=== PATIENT | female | born 1955 | race Caucasian/White ===

== ENCOUNTER → 2018-07-17 | Outpatient (CLI) | payer MEDICAID ==
--- NOTE | 2018-07-17 13:15 | WOMENS IMAGING REPORT ---
EXAM DESCRIPTION: BILAT SCREENING MAMMO W/CAD COMPLETED DATE/TIME: 07/17/2018 12:30 pm REASON FOR STUDY: Z12.31 ROUTINE BILATRAL SCREENING Z12.31 ENCNTR SCREEN MAMMOGRAM FOR MALIGNANT NE OPLASM OF ERIK COMPARISON: None. TECHNIQUE: Standard craniocaudal and mediolateral oblique views of each breast recorded using Showpada l acquisition. LIMITATIONS: None. FINDINGS: No masses, calcifications or architectural distortion. No areas of suspicion. Read with the assistance of CAD. .[facility] - R2 Cenova Version 1.3 .[facility] Imaging - R2 Cenova Version 2.1 .[facility] - R2 Cenova Version 2.4 .[facility] [place] Cenova Version 2.4 .[facility] - R2 Eyelet Riveter Version 9.2 IMPRESSION: NORMAL MAMMOGRAM. BIRADS 1. BREAST DENSITY: c. The breasts are heterogeneously dense, which may obscure small masses. BIRAD: 1 NEGATIVE RECOMMENDATION: ROUTINE SCREENING COMMENT: The patient has been notified of the results by letter per SA requirements. Additional no tification policies are in place for contacting patient with suspicious or incomplete findings. Quality ID #[id number]: The [employer] recommends an annual screening mammogram for women aged 40 years or over. This facility utilizes a reminder system to ensure that all patients receive reminder letters, and/or direct phone calls for appointments. This includes reminders for routine scr eening mammograms, diagnostic mammograms, or other Breast Imaging Interventions when appropriate. Th is patient will be placed in the appropriate reminder system. The [employer] (ACR) has developed recommendations for screening MRI of the breast s in certain patient populations, to be used in conjunction with mammography. Breast MRI surveillanc e may be appropriate for women with more than 20% lifetime risk of developing breast cancer as deter mined by genetic testing, significant family history of the disease, or history of mantle radiation f or Hodgkins Disease. ACR Practice Guidelines 2008. TECHNICAL DOCUMENTATION: FINDING NUMBER: (1) ASSESSMENT: (1) JOB ID: [id number] [employer]- All Rights Reserved Reading location - IP/workstation name: [email or web address]
== END ==
LOC: WI 11:34
PROVIDERS: ATTEND Family Medicine
DX: Z12.31 Encounter for screening mammogram for malignant neoplasm of breast (principal)
CPT/HCPCS: 77067

== ENCOUNTER → 2018-09-19 | Outpatient (CLI) | payer MEDICAID ==
[2018-09-19 12:38] LABS: ABSOLUTE BASOPHILS # (AUTO) 0.1 10^3/uL (0.0-0.2); ABSOLUTE EOSINOPHILS # (AUTO) 0.1 10^3/uL (0.0-0.6); ABSOLUTE LYMPHOCYTES (AUTO) 1.6 10^3/uL (0.5-4.7); ABSOLUTE MONOCYTES (AUTO) 0.5 10^3/uL (0.1-1.4); ABSOLUTE NEUT (AUTO) 4.3 10^3/uL (1.7-8.2); BASOPHILS % (AUTO) 1.1 % (0-2); EOSINOPHILS % (AUTO) 1.5 % (0-6); HEMATOCRIT 42.7 % (36.0-47.0); HEMOGLOBIN 14.8 g/dL (12.0-15.5); LYMPHOCYTES % (AUTO) 24.1 % (13-45); MEAN CORPUSCULAR HEMOGLOBIN 34.6 pg (27.0-33.4); MEAN CORPUSCULAR HGB CONC 34.6 g/dL (32.0-36.0); MEAN CORPUSCULAR VOLUME 100 fl (80-97); MONOCYTES % (AUTO) 7.4 % (3-13); PLATELET COUNT 301 10^3/uL (150-450); RED BLOOD COUNT 4.28 10^6/uL (3.72-5.28); RED CELL DISTRIBUTION WIDTH 12.5 % (11.5-14.0); SEGMENTED NEUTROPHILS % (AUTO) 65.9 % (42-78); TOTAL CELLS COUNTED % (AUTO) 100 %; WHITE BLOOD COUNT 6.6 10^3/uL (4.0-10.5)
[2018-09-19 13:09] LABS: ALANINE AMINOTRANSFERASE 20 U/L (9-52); ALBUMIN 4.5 g/dL (3.5-5.0); ALKALINE PHOSPHATASE 85 U/L (38-126); ANION GAP 11 (5-19); ASPARTATE AMINO TRANSFERASE 28 U/L (14-36); BILIRUBIN,DIRECT 0.2 mg/dL (0.0-0.4); BILIRUBIN,TOTAL 0.6 mg/dL (0.2-1.3); BLOOD UREA NITROGEN 8 mg/dL (7-20); CALCIUM 10.5 mg/dL (8.4-10.2); CARBON DIOXIDE 29 mmol/L (22-30); CHLORIDE 98 mmol/L (98-107); GLUCOSE 103 mg/dL (75-110); POTASSIUM 4.1 mmol/L (3.6-5.0); SODIUM 137.9 mmol/L (137-145); TOTAL PROTEIN 7.2 g/dL (6.3-8.2)
--- NOTE | 2018-09-19 13:39 | RADIOLOGY REPORT (SQ) ---
EXAM DESCRIPTION: CHEST PA/LATERAL COMPLETED DATE/TIME: 09/19/2018 12:20 pm REASON FOR STUDY: COUGH COMPARISON: CT angio chest 10/02/2015 Two-view chest 10/02/2015 EXAM PARAMETERS: NUMBER OF VIEWS: two views TECHNIQUE: Digital Frontal and Lateral radiographic views of the chest acquired. RADIATION DOSE: NA LIMITATIONS: none FINDINGS: LUNGS AND PLEURA: No opacities, masses or pneumothorax. No pleural effusion. MEDIASTINUM AND HILAR STRUCTURES: No masses or contour abnormalities. HEART AND VASCULAR STRUCTURES: Heart normal size. No evidence for failure. BONES: No acute findings. HARDWARE: None in the chest. OTHER: No other significant finding. IMPRESSION: NO SIGNIFICANT RADIOGRAPHIC FINDING IN THE CHEST. TECHNICAL DOCUMENTATION: JOB ID: [id number] [email or web address]- All Rights Reserved Reading location - IP/workstation name: [email or web address]
== END ==
LOC: OD 11:53
PROVIDERS: ATTEND Nurse Practitioner Acute Care
DX: R42 Dizziness and giddiness (principal); R05 Cough
CPT/HCPCS: 36415; 71046; 80053; 84443; 85025

== ENCOUNTER 2018-12-16 05:54 | Emergency (ER) | payer MEDICAID ==
[2018-12-16 06:01] VITALS: BP 152/84
--- NOTE | 2018-12-16 09:27 | ER Document Report ---
ED General - General TRAVEL OUTSIDE OF THE [place] IN LAST 30 DAYS: No - General Chief Complaint: Allergic Reaction Stated Complaint: HAND PROBLEM Time Seen by Provider: 12/16/18 09:25 Primary Care Provider: MARY JANE MIX DO [ACTIVE STAFF] - [facility] ROXANNE ESPINOZA DO [Primary Care Provider] - Follow up in 1 week - [facility] Notes: 63-year-old female to the emergency department with complaints of progressively worsening rash to her forearms, fingers, right ear, legs for the past 2 months. She states that she saw her primary care this past week and he gave her permethrin cream. She states that she is used it several times but has not had relief. She states that to her left forearm the ulcerations have now started to weep and she has increasing redness and swelling to the arm. She states that these lesions hurt. She does have a history of cold sores. But she is never had any sort of herpetic lesion anywhere else on her body. She is not sexually active. She denies any new medications. [place] any dogs. She has not noticed any new bug infestations at her home. She denies any fevers, chills, chest pain, shortness of breath, nausea, vomiting, diarrhea, abdominal pain. (MILLER PARKINSON) - Related Data Allergies/Adverse Reactions: No Known Allergies Allergy (Verified 10/02/15 18:26) Past Medical History - General Information source: Patient - Social History Smoking Status: Current Every Day Smoker Chew tobacco use (# tins/day): No Frequency of alcohol use: None Drug Abuse: None Family History: Reviewed & Not Pertinent Patient has suicidal ideation: No Patient has homicidal ideation: No - Past Medical History Cardiac Medical History: Reports: Hx Hypertension Denies: Hx Heart Attack Pulmonary Medical History: Reports: Hx COPD Denies: Hx Asthma Neurological Medical History: Denies: Hx Cerebrovascular Accident, Hx Seizures Renal/ Medical History: Denies: Hx Peritoneal Dialysis GI Medical History: Denies: Hx Hepatitis, Hx Hiatal Hernia, Hx Ulcer Musculoskeletal Medical History: Psychiatric Medical History: Reports: Hx Depression Denies: Hx Schizophrenia Infectious Medical History: Denies: Hx Hepatitis Past Surgical History: Reports: Hx Tubal Ligation. Denies: Hx Mastectomy, Hx Open Heart Surgery, Hx Pacemaker - Immunizations Hx Diphtheria, Pertussis, Tetanus Vaccination: - unknown Review of Systems - Review of Systems Constitutional: denies: Chills, Fever EENT: denies: Eye pain, Eye discharge Cardiovascular: denies: Chest pain, Palpitations, Dyspnea, Syncope, Dizziness Respiratory: denies: Cough, Short of breath Gastrointestinal: denies: Abdominal pain, Diarrhea, Nausea, Vomiting Skin: See HPI, Change in color, Rash Hematologic/Lymphatic: denies: No symptoms reported Neurological/Psychological: denies: No symptoms reported -: Yes All other systems reviewed and negative Physical Exam - Vital signs Interpretation: Hypertensive - General General appearance: Appears well, Alert In distress: None - HEENT Head: Normocephalic, Atraumatic Eyes: Normal Pupils: PERRL Ears: Other - To the right ear auricle there is noted crusted ulcerations with mild surrounding erythema Tympanic membrane: Normal Sinus: Normal Nasal: Other - No blistering - Respiratory Respiratory status: No respiratory distress Chest status: Nontender Breath sounds: Normal Chest palpation: Normal - Cardiovascular Rhythm: Regular Heart sounds: Normal auscultation Murmur: No - Back Back: Normal - Neurological Neuro grossly intact: Yes Cognition: Normal Orientation: AAOx4 Shahrzad Coma Scale Eye Opening: Spontaneous Shahrzad Coma Scale Verbal: Oriented [place] Coma Scale Motor: Obeys Commands [place] Coma Scale Total: 15 Speech: Normal Motor strength normal: LUE, RUE, LLE, RLE Sensory: Normal - Psychological Associated symptoms: Normal affect, Normal mood - Skin Skin Temperature: Warm Skin Moisture: Dry Skin irregularity: Rash - To the left dorsal forearm, all fingers, to the right auricle and to bilateral lower legs there are multiple areas of shallow based ulcers with surrounding erythema. To the left dorsal forearm these ulcers are open and weeping and there is coalescing erythema and mild edema to the forearm. It is hot to touch and tender to palpation. There appears to be no lymphangitis. - Vital signs Vitals: Temp Pulse Resp BP Pulse Ox 97.5 F 95 18 152/84 H 98 12/16/18 05:59 12/16/18 05:59 12/16/18 05:59 12/16/18 05:59 12/16/18 05:59 Course - Re-evaluation Re-evalutation: 12/16/18 Dr. Fabian and I discussed patient and she went and saw her. We both agree that this looks to be some sort of herpetic infection with possibly superimposed infection to the left dorsal forearm. I have cultured the wounds with both regular wound culture and HSV. We will go ahead and start with antivirals and antibiotics. Have encouraged her to follow with dermatology without fail. She agrees with the plan. Have encouraged her to return if any worsening symptoms to include progressive redness, fevers, chills, worsening pain. (MILLER PARKINSON) 12/16/18 13:57 I personally evaluated this patient. She is alert and nontoxic in appearance. Vital signs reviewed. I agree with physical exam findings of ulcerative lesions consistent with herpetic infection with superimposed bacterial infection. Recommend antivirals and antibiotics. Patient has follow-up appointment with dermatology as referred by her PCP. (ANURADHA FABIAN) - Vital Signs Vital signs: Temp Pulse Resp BP Pulse Ox 97.5 F 95 18 152/84 H 98 12/16/18 05:59 12/16/18 05:59 12/16/18 05:59 12/16/18 05:59 12/16/18 05:59 Discharge - Discharge Clinical Impression: Skin ulceration, Dermatitis Condition: Stable Disposition: HOME, SELF-CARE Instructions: Contact Dermatitis ([facility]) Additional Instructions: TAKE ALL MEDICINE PRESCRIBED. RETURN IMMEDIATELY IF ANY FEVERS, PROGRESSIVE REDNESS, CHEST PAIN, SHORTNESS OF BREATH, OR ANY OTHER COMPLAINTS. PUSH FLU IDS. FOLLOW UP WITH PRIMARY CARE AND DERMATOLOGY. Prescriptions: RX: Doxycycline Hyclate 100 mg PO BID #14 capsule Mupirocin [Bactroban 2% Ointment 22 gm] 1 applic TP TID #1 tube Valacyclovir HCl [Valtrex] 1,000 mg PO TID #21 tablet Referrals: ROXANNE ESPINOZA DO [Primary Care Provider] - Follow up in 1 week MARY JANE MIX DO [ACTIVE STAFF] - Follow up in 3-5 days (folow up for dermatology )
[2018-12-16] MEDS ORDERED: ACETAMINOPHEN 325 MG TABLET PO ONE (09:42)
== END 2018-12-16 11:44 | disposition home or self-care (01) ==
LOC: ER 05:54
DX: L98.499 Non-pressure chronic ulcer of skin of other sites with unspecified severity (principal); L30.9 Dermatitis, unspecified; T78.40XA Allergy, unspecified, initial encounter; R21 Rash and other nonspecific skin eruption; F17.200 Nicotine dependence, unspecified, uncomplicated; I10 Essential (primary) hypertension; J44.9 Chronic obstructive pulmonary disease, unspecified
CPT/HCPCS: 99282; 87070; 87205; 87077; 87250; 87186; J3490

== ENCOUNTER 2019-05-18 13:25 | Emergency (ER) | payer MEDICAID ==
[2019-05-18] MEDS ORDERED: NORMAL SALINE 1000 ML 1,000 ML IV ONE (14:07)
--- NOTE | 2019-05-18 14:12 | ER Document Report ---
ED Medical Screen (RME) - General Chief Complaint: Abnormal Lab Results Stated Complaint: BODY PAIN/ABNORMAL LABS Time Seen by Provider: 05/18/19 14:02 Primary Care Provider: RHEA COLE NP [Primary Care Provider] - Follow up as needed Notes: Patient is a 64-year-old female who presents emergency department for chronic fatigue and generalized not feeling well. She saw her primary care provider today and was sent in for labs. Her sodium was 130.4 and potassium was 5.1. C- reactive protein was 14.9 also. She also had a chest x-ray done that showed emphysema. Patient is an everyday smoker. See labs from visit to lab earlier today. Exam: S1, S2. Clear breath sounds bilaterally. I have greeted and performed a rapid initial assessment of this patient. A comprehensive ED assessment and evaluation of the patient, analysis of test results and completion of medical decision making process will be conducted by an additional ED providers. TRAVEL OUTSIDE OF THE [place] IN LAST 30 DAYS: No - Related Data Allergies/Adverse Reactions: No Known Allergies Allergy (Verified 10/02/15 18:26) Past Medical History - Social History Frequency of alcohol use: Occasional Drug Abuse: None - Past Medical History Cardiac Medical History: Reports: Hx Hypertension Denies: Hx Heart Attack Pulmonary Medical History: Reports: Hx COPD Denies: Hx Asthma Neurological Medical History: Denies: Hx Cerebrovascular Accident, Hx Seizures Renal/ Medical History: Denies: Hx Peritoneal Dialysis GI Medical History: Denies: Hx Hepatitis, Hx Hiatal Hernia, Hx Ulcer Musculoskeltal Medical History: Psychiatric Medical History: Reports: Hx Depression Denies: Hx Schizophrenia Infectious Medical History: Denies: Hx Hepatitis Past Surgical History: Reports: Hx Tubal Ligation. Denies: Hx Mastectomy, Hx Open Heart Surgery, Hx Pacemaker - Immunizations Hx Diphtheria, Pertussis, Tetanus Vaccination: - unknown Physical Exam - Vital signs Vitals: Temp Pulse Resp BP Pulse Ox 99.7 F 101 H 20 115/82 94 05/18/19 14:05/18/19 14:05/18/19 14:05/18/19 14:05/18/19 14:00 Course - Vital Signs Vital signs: Temp Pulse Resp BP Pulse Ox 99.7 F 101 H 20 115/82 94 05/18/19 14:05/18/19 14:05/18/19 14:00 05/18/19 14:00 05/18/19 14:00 Doctor's Discharge - Discharge Referrals: RHEA COLE, DOG SITTER [Primary Care Provider] - Follow up as needed
[2019-05-18 16:04] LABS: APPEARANCE,URINE SLIGHTLY-CLOUDY; BILIRUBIN,URINE NEGATIVE (NEGATIVE); COLOR,URINE STRAW; GLUCOSE, URINE NEGATIVE (NEGATIVE); KETONES,URINE NEGATIVE (NEGATIVE); LEUKOCYTE ESTERASE,URINE NEGATIVE (NEGATIVE); NITRITE,URINE NEGATIVE (NEGATIVE); PROTEIN,URINE NEGATIVE (NEGATIVE); URINE SPECIFIC GRAVITY 1.003; UROBILINOGEN,URINE NEGATIVE mg/dL (<2.0)
[2019-05-18] MEDS ORDERED: PREDNISONE 20 MG TABLET PO ONE (17:34)
[2019-05-18 17:46] LABS: ABSOLUTE LYMPHOCYTES (AUTO) 1.1 10^3/uL (0.5-4.7); ABSOLUTE MONOCYTES (AUTO) 0.5 10^3/uL (0.1-1.4); ABSOLUTE NEUT (AUTO) 3.4 10^3/uL (1.7-8.2); BASOPHILS % (AUTO) 0.6 % (0-2); EOSINOPHILS % (AUTO) 0.3 % (0-6); HEMATOCRIT 40.4 % (36.0-47.0); HEMOGLOBIN 14.2 g/dL (12.0-15.5); LYMPHOCYTES % (AUTO) 22.5 % (13-45); MEAN CORPUSCULAR HEMOGLOBIN 34.7 pg (27.0-33.4); MEAN CORPUSCULAR HGB CONC 35.2 g/dL (32.0-36.0); MEAN CORPUSCULAR VOLUME 99 fl (80-97); MONOCYTES % (AUTO) 9.9 % (3-13); PLATELET COUNT 147 10^3/uL (150-450); RED CELL DISTRIBUTION WIDTH 13.1 % (11.5-14.0); SEGMENTED NEUTROPHILS % (AUTO) 66.7 % (42-78); TOTAL CELLS COUNTED % (AUTO) 100 %; WHITE BLOOD COUNT 5.1 10^3/uL (4.0-10.5)
[2019-05-18 17:47] LABS: INTERNATIONAL RATION (INR) 0.87; PROTHROMBIN TIME 11.8 SEC (11.4-15.4)
[2019-05-18 18:04] LABS: ALBUMIN 3.6 g/dL (3.5-5.0); ALKALINE PHOSPHATASE 100 U/L (38-126); ANION GAP 9 (5-19); ASPARTATE AMINO TRANSFERASE 48 U/L (14-36); BILIRUBIN,DIRECT 0.2 mg/dL (0.0-0.4); BILIRUBIN,TOTAL 0.3 mg/dL (0.2-1.3); BLOOD UREA NITROGEN 6 mg/dL (7-20); CALCIUM 8.6 mg/dL (8.4-10.2); CARBON DIOXIDE 24 mmol/L (22-30); CHLORIDE 99 mmol/L (98-107); GLUCOSE 100 mg/dL (75-110); POTASSIUM 4.2 mmol/L (3.6-5.0); TOTAL PROTEIN 6.4 g/dL (6.3-8.2)
--- NOTE | 2019-05-18 18:19 | ER Document Report ---
Entered by AMRITA HAQ SCRIBE 05/18/19 1721 Acting as scribe for:CLARISSA CERVANTES IV, MD ED General - General Chief Complaint: Abnormal Lab Results Stated Complaint: BODY PAIN/ABNORMAL LABS Time Seen by Provider: 05/18/19 14:02 Primary Care Provider: KELLI KENNEDY MD [ACTIVE STAFF] - 05/21/19 (CALL TO SCHEDULE APPOINTMENT) RHEA COLE NP [Primary Care Provider] - Follow up as needed Mode of Arrival: Ambulatory Information source: Patient Notes: This 64 year old female patient presents to the ED today with complaints of chronic fatigue and generalized body pain for the past x3 months. Patient states that she went to her PCP today and was told to come here due to abnormal lab results (Na 130.4, K 5.1, C-reactive protein 14.9). Patient notes that her symptoms have progressively gotten worse since onset and that movement exacer almazan the pain. Patient reports weakness, sore throat, ear pain, dyspnea, reproducible chest pain with coughing, abdominal pain that began last night, nausea, and constipation. Patient notes that her blood pressure medication was changed x2-3 months ago, but is unaware if that is the cause of present symptoms. Patient states that she has an advair inhaler that she uses bid and albuterol. Patient states that she has been prescribed steroids in the past and they seem to mildly relieve her symptoms. TRAVEL OUTSIDE OF THE [place] IN LAST 30 DAYS: No - Related Data Allergies/Adverse Reactions: No Known Allergies Allergy (Verified 10/02/15 18:26) Past Medical History - General Information source: Patient - Social History Smoking Status: Current Every Day Smoker Chew tobacco use (# tins/day): No Smoking Education Provided: No Frequency of alcohol use: Occasional Drug Abuse: None Family History: Reviewed & Not Pertinent Patient has suicidal ideation: No Patient has homicidal ideation: No - Past Medical History Cardiac Medical History: Reports: Hx Hypertension Pulmonary Medical History: Reports: Hx COPD Musculoskeletal Medical History: Psychiatric Medical History: Reports: Hx Depression Past Surgical History: Reports: Hx Orthopedic Surgery - right foot, Hx Tubal Ligation - Immunizations Hx Diphtheria, Pertussis, Tetanus Vaccination: - unknown Review of Systems - Review of Systems Constitutional: See HPI, Weakness EENT: See HPI, Ear pain Cardiovascular: See HPI, Chest pain - reproducible chest pain with coughing, Dyspnea Respiratory: See HPI, Cough Gastrointestinal: See HPI, Abdominal pain, Nausea, Constipation Genitourinary: No symptoms reported Female Genitourinary: No symptoms reported Musculoskeletal: No symptoms reported Skin: No symptoms reported Hematologic/Lymphatic: No symptoms reported Neurological/Psychological: No symptoms reported -: Yes All other systems reviewed and negative Physical Exam - Vital signs Vitals: Temp Pulse Resp BP Pulse Ox 99.7 F 101 H 20 115/82 94 05/18/19 14:00 05/18/19 14:00 05/18/19 14:00 05/18/19 14:00 05/18/19 14:00 - General General appearance: Appears well, Alert - HEENT Head: Normocephalic, Atraumatic Eyes: Normal Pupils: PERRL - Respiratory Respiratory status: No respiratory distress Chest status: Nontender Breath sounds: Normal Chest palpation: Normal - Cardiovascular Rhythm: Regular Heart sounds: Normal auscultation Murmur: No - Abdominal Inspection: Normal Distension: No distension Bowel sounds: Normal Tenderness: Nontender - Abdomen soft Organomegaly: No organomegaly - Back Back: Normal, Nontender - Extremities General upper extremity: Normal inspection General lower extremity: Normal inspection - Neurological Neuro grossly intact: Yes - Psychological Associated symptoms: Normal affect, Normal mood - Skin Skin Temperature: Warm Skin Moisture: Dry Skin Color: Normal Course - Vital Signs Vital signs: Temp Pulse Resp BP Pulse Ox 99.7 F 101 H 23 H 139/80 H 93 05/18/19 14:00 05/18/19 14:00 05/18/19 18:22 05/18/19 18:25 05/18/19 18:22 - Laboratory Result Diagrams: 05/18/19 17:23 05/18/19 17:23 Laboratory results interpreted by me: 05/18/19 05/18/19 17:23 17:23 MCV 99 H MCH 34.7 H Plt Count 147 L Sodium 132.2 L BUN 6 L AST 48 H Discharge - Discharge Clinical Impression: Hyponatremia, Tobacco abuse Fatigue Qualifiers: Fatigue type: other Qualified Code(s): R53.83 - Other fatigue Emphysema of lung Qualifiers: Emphysema type: unspecified Qualified Code(s): J43.9 - Emphysema, unspecified Condition: Good Disposition: HOME, SELF-CARE Additional Instructions: Return to the Emergency Department without delay if any worse. Stop Smoking You should stop smoking. The tar and chemicals in cigarette smoke are harmful. Smoking has been shown to cause: Emphysema and chronic bronchitis Lung cancer Cancer of the mouth, larynx, stomach, and pancreas Heart disease and stroke Stillbirths and miscarriage Premature aging In addition, smoking increases the chances of respiratory infections and ear infections in children of smokers, and increases the risk of cancer in perso ns exposed to second-hand smoke. Classes are available to help you stop smoking. If you are serious about wanting to quit, we can help arrange this therapy for you, or you can contact the local lung or cancer association. HOME CARE INSTRUCTIONS & INFORMATION: Thank you for choosing us for your medical needs. We hope you're satisfied with the care you received. After you leave, you must properly care for your problem and, at the same time, observe its progress. Any condition can change. Some illnesses can change rapidly over hours or days. If your condition worsens, return to the Emergency Department or see your physician promptly. ABOUT YOUR X-RAYS AND EKG'S: If you had an EKG or X-rays taken, they have been read by the Emergency Physician. The X-rays and EKG's will also be read by a Radiologist or Circle Shear Operator within 24 hours. If discrepancies are noted, you will be notified by telephone. Please be certain the ED has a correct telephone number & address where you can be reached. Also, realize that some fractures or abnormalities do not show up on initial X-rays. If your symptoms continue, see your physician. ABOUT YOUR LABORATORY TEST: If you had laboratory tests, the results have been reviewed by the Emergency Physician. Some test results (for example cultures) may not be available for several days. You will be contacted if any test result shows you need additional treatment. Please be certain the ED has a correct telephone number and address where you can be reached. ABOUT YOUR MEDICATIONS: You will receive instructions on how to take your med icine on the prescription label you receive. Additional information may be provided by the Pharmacy. If you have questions afterwards, call the ED for clarification or further instructions. Some prescribed medications may cause drowsiness. Do not perform tasks such as driving a car or operating machinery without consulting your Pharmacist. If you feel you need a refill of pain medication, your condition will need re-evaluation. Please do not call for a refill of any medication. ABOUT YOUR SIGNATURE: Signature of this document acknowledges to followin. Understanding that you received emergency treatment and that you may be released before al medical problems are known or treated. Please be certain the ED has a correct phone number & address where you can be reached. 2. Acknowledgement that you will arrange for follow-up care as recommended. 3. Authorization for the Emergency Physician to provide information to your follow-up Physician in order to maximize your care. AT ANY TIME, IF YOUR SYMPTOMS CHANGE SIGNIFICANTLY OR WORSEN OR YOU DEVELOP NEW SYMPTOMS, RETURN TO THE EMERGENCY DEPARTMENT IMMEDIATELY FOR RE-EVALUATION. OUR GOAL IS TO PROVIDE EXCELLENT MEDICAL CARE! WE HOPE THAT WE HAVE MET YOUR EXPECTATIONS DURING YOUR EMERGENCY DEPARTMENT VISIT AND THAT YOU FEEL YOU HAVE RECEIVED EXCELLENT CARE! Prescriptions: Prednisone [Deltasone 20 mg Tablet] 3 tab PO DAILY 4 Days #12 tablet Referrals: RHEA COLE LINE UP MACHINE OPERATOR [Primary Care Provider] - Follow up as needed KELLI KENNEDY MD [ACTIVE STAFF] - 05/21/19 (CALL TO SCHEDULE APPOINTMENT) I personally performed the services described in the documentation, reviewed and edited the documentation which was dictated to the scribe in my presence, and it accurately records my words and actions.
[2019-05-18 18:30] VITALS: BP 139/80
== END 2019-05-18 18:30 | disposition home or self-care (01) ==
LOC: ER 13:25
DX: E87.1 Hypo-osmolality and hyponatremia (principal); R53.83 Other fatigue; J43.9 Emphysema, unspecified; K59.00 Constipation, unspecified; R11.0 Nausea; M79.10 Myalgia, unspecified site; F17.200 Nicotine dependence, unspecified, uncomplicated; I10 Essential (primary) hypertension; Z98.51 Tubal ligation status
CPT/HCPCS: 99283; 96360; 96361; 36415; 85610; 87070; 81001; J7512; J7030

== ENCOUNTER → 2019-05-18 | Outpatient (CLI) | payer MEDICAID ==
[2019-05-18 10:50] LABS: ABSOLUTE LYMPHOCYTES (AUTO) 0.8 10^3/uL (0.5-4.7); ABSOLUTE MONOCYTES (AUTO) 0.5 10^3/uL (0.1-1.4); ABSOLUTE NEUT (AUTO) 3.1 10^3/uL (1.7-8.2); BASOPHILS % (AUTO) 0.6 % (0-2); EOSINOPHILS % (AUTO) 0.4 % (0-6); HEMATOCRIT 43.9 % (36.0-47.0); HEMOGLOBIN 15.3 g/dL (12.0-15.5); LYMPHOCYTES % (AUTO) 17.6 % (13-45); MEAN CORPUSCULAR HEMOGLOBIN 34.5 pg (27.0-33.4); MEAN CORPUSCULAR HGB CONC 34.9 g/dL (32.0-36.0); MEAN CORPUSCULAR VOLUME 99 fl (80-97); MONOCYTES % (AUTO) 10.2 % (3-13); PLATELET COUNT 150 10^3/uL (150-450); RED BLOOD COUNT 4.45 10^6/uL (3.72-5.28); RED CELL DISTRIBUTION WIDTH 12.8 % (11.5-14.0); SEGMENTED NEUTROPHILS % (AUTO) 71.2 % (42-78); TOTAL CELLS COUNTED % (AUTO) 100 %; WHITE BLOOD COUNT 4.4 10^3/uL (4.0-10.5)
--- NOTE | 2019-05-18 11:06 | RADIOLOGY REPORT (SQ) ---
EXAM DESCRIPTION: CHEST PA/LATERAL COMPLETED DATE/TIME: 05/18/2019 10:32 am REASON FOR STUDY: COPD MIXED TYPE COMPARISON: 09/19/2018 radiograph, CT 10/02/2015 EXAM PARAMETERS: NUMBER OF VIEWS: two views TECHNIQUE: Digital Frontal and Lateral radiographic views of the chest acquired. RADIATION DOSE: NA LIMITATIONS: none FINDINGS: LUNGS AND PLEURA: Mild interstitial prominence. No focal consolidation. No pleural effu krystal or pneumothorax. MEDIASTINUM AND HILAR STRUCTURES: No masses or contour abnormalities. HEART AND VASCULAR STRUCTURES: Heart normal size. No evidence for failure. BONES: No acute findings. HARDWARE: None in the chest. OTHER: No other significant finding. IMPRESSION: Mild emphysematous change. No focal consolidation or other acute cardiopulmonary proces s. TECHNICAL DOCUMENTATION: JOB ID: [id number] [employer]- All Rights Reserved Reading location - IP/workstation name: [email or web address]
[2019-05-18 11:23] LABS: ALBUMIN 4.4 g/dL (3.5-5.0); ALKALINE PHOSPHATASE 109 U/L (38-126); ANION GAP 10 (5-19); ASPARTATE AMINO TRANSFERASE 65 U/L (14-36); BILIRUBIN,DIRECT 0.2 mg/dL (0.0-0.4); BILIRUBIN,TOTAL 0.3 mg/dL (0.2-1.3); BLOOD UREA NITROGEN 7 mg/dL (7-20); C-REACTIVE PROTEIN 14.9 mg/L (<10.0); CALCIUM 9.6 mg/dL (8.4-10.2); CARBON DIOXIDE 28 mmol/L (22-30); CHLORIDE 92 mmol/L (98-107); CREATINE KINASE 95 U/L (30-135); GLUCOSE 89 mg/dL (75-110); POTASSIUM 5.1 mmol/L (3.6-5.0); TOTAL PROTEIN 7.4 g/dL (6.3-8.2)
[2019-05-18 11:33] LABS: ERYTHROCYTE SEDIMENTATION RATE 8 mm/hr (0-30)
== END ==
LOC: OD 10:11
PROVIDERS: ATTEND Nurse Practitioner Family
DX: E87.1 Hypo-osmolality and hyponatremia (principal); M79.10 Myalgia, unspecified site; R53.82 Chronic fatigue, unspecified; J44.9 Chronic obstructive pulmonary disease, unspecified
CPT/HCPCS: 36415; 71046; 80053; 82550; 85025; 85652; 86140; 86160; 86430

== ENCOUNTER 2019-05-23 10:41 | Emergency (ER) | payer MEDICAID ==
[2019-05-23 11:09] VITALS: BP 168/80
--- NOTE | 2019-05-23 11:17 | ER Document Report ---
ED Medical Screen (RME) - General Chief Complaint: Shortness Of Breath Stated Complaint: SHORTNESS OF BREATH Time Seen by Provider: 05/23/19 11:10 Primary Care Provider: RHEA COLE NP [Primary Care Provider] - Follow up as needed Mode of Arrival: Ambulatory Information source: Patient Notes: This 64-year-old female with history of mild COPD that still smokes with history of vaping presents to the emergency department with complaints of continuous cough and dizziness. She reports she was evaluated in this emergency department on Tuesday. She was treated with prednisone. She reports she is gone home went to bed and has not got out of bed and the cough is worse. Denies fever vomiting diarrhea. Reports her stomach hurts from coughing so bad. I have greeted and performed a rapid initial assessment of this patient. A comprehensive ED assessment and evaluation of the patient, analysis of test results and completion of the medical decision making process will be conducted by additional ED providers. TRAVEL OUTSIDE OF THE [place] IN LAST 30 DAYS: No - Related Data Allergies/Adverse Reactions: No Known Allergies Allergy (Verified 10/02/15 18:26) Past Medical History - Social History Chew tobacco use (# tins/day): No Drug Abuse: None - Past Medical History Cardiac Medical History: Reports: Hx Hypertension Denies: Hx Heart Attack Pulmonary Medical History: Reports: Hx COPD Denies: Hx Asthma Neurological Medical History: Denies: Hx Cerebrovascular Accident, Hx Seizures Renal/ Medical History: Denies: Hx Peritoneal Dialysis GI Medical History: Denies: Hx Hepatitis, Hx Hiatal Hernia, Hx Ulcer Musculoskeltal Medical History: Psychiatric Medical History: Reports: Hx Depression Denies: Hx Schizophrenia Infectious Medical History: Denies: Hx Hepatitis Past Surgical History: Reports: Hx Orthopedic Surgery - right foot, Hx Tubal Ligation. Denies: Hx Mastectomy, Hx Open Heart Surgery, Hx Pacemaker - Immunizations Hx Diphtheria, Pertussis, Tetanus Vaccination: - unknown Physical Exam - Vital signs Vitals: Temp Pulse Resp BP Pulse Ox 97.4 F 101 H 20 168/80 H 96 05/23/19 11:06 05/23/19 11:06 05/23/19 11:06 05/23/19 11:06 05/23/19 11:06 Course - Vital Signs Vital signs: Temp Pulse Resp BP Pulse Ox 97.4 F 101 H 20 168/80 H 96 05/23/19 11:06 05/23/19 11:06 05/23/19 11:06 05/23/19 11:06 05/23/19 11:06 Doctor's Discharge - Discharge Referrals: RHEA COLE, FOREST PATHOLOGY TEACHER [Primary Care Provider] - Follow up as needed
[2019-05-23 12:19] LABS: ABSOLUTE LYMPHOCYTES (AUTO) 0.6 10^3/uL (0.5-4.7); ABSOLUTE MONOCYTES (AUTO) 0.3 10^3/uL (0.1-1.4); BASOPHILS % (AUTO) 0.4 % (0-2); EOSINOPHILS % (AUTO) 0.2 % (0-6); HEMATOCRIT 44.5 % (36.0-47.0); HEMOGLOBIN 15.4 g/dL (12.0-15.5); LYMPHOCYTES % (AUTO) 8.8 % (13-45); MEAN CORPUSCULAR HEMOGLOBIN 34.2 pg (27.0-33.4); MEAN CORPUSCULAR HGB CONC 34.6 g/dL (32.0-36.0); MEAN CORPUSCULAR VOLUME 99 fl (80-97); MONOCYTES % (AUTO) 4.6 % (3-13); PLATELET COUNT 367 10^3/uL (150-450); RED BLOOD COUNT 4.51 10^6/uL (3.72-5.28); RED CELL DISTRIBUTION WIDTH 12.9 % (11.5-14.0); TOTAL CELLS COUNTED % (AUTO) 100 %; WHITE BLOOD COUNT 6.9 10^3/uL (4.0-10.5)
[2019-05-23 12:35] LABS: APPEARANCE,URINE CLEAR; BILIRUBIN,URINE NEGATIVE (NEGATIVE); COLOR,URINE STRAW; GLUCOSE, URINE NEGATIVE (NEGATIVE); KETONES,URINE NEGATIVE (NEGATIVE); LEUKOCYTE ESTERASE,URINE NEGATIVE (NEGATIVE); NITRITE,URINE NEGATIVE (NEGATIVE); PROTEIN,URINE NEGATIVE (NEGATIVE); URINE SPECIFIC GRAVITY 1.006; UROBILINOGEN,URINE NEGATIVE mg/dL (<2.0)
--- NOTE | 2019-05-23 12:37 | RADIOLOGY REPORT (SQ) ---
EXAM DESCRIPTION: CHEST 2 VIEWS COMPLETED DATE/TIME: 05/23/2019 12:18 pm REASON FOR STUDY: cough COMPARISON: PA and lateral views of the chest from 05/18/2019. EXAM PARAMETERS: NUMBER OF VIEWS: two views TECHNIQUE: PA and lateral views of the chest were obtained. RADIATION DOSE: NA LIMITATIONS: none FINDINGS: LUNGS AND PLEURA: No consolidation, pleural effusion or pneumothorax. MEDIASTINUM AND HILAR STRUCTURES: No mediastinal or hilar contour abnormality. HEART AND VASCULAR STRUCTURES: The cardiac silhouette and pulmonary vasculature are within normal canales its. BONES: No acute findings. HARDWARE: None in the chest. OTHER: No other finding. IMPRESSION: No acute cardiopulmonary process. TECHNICAL DOCUMENTATION: JOB ID: [id number] [employer]- All Rights Reserved Reading location - IP/workstation name: [email or web address]
[2019-05-23 12:54] LABS: ALBUMIN 4.3 g/dL (3.5-5.0); ALKALINE PHOSPHATASE 109 U/L (38-126); ANION GAP 11 (5-19); ASPARTATE AMINO TRANSFERASE 30 U/L (14-36); BILIRUBIN,DIRECT 0.2 mg/dL (0.0-0.4); BILIRUBIN,TOTAL 0.6 mg/dL (0.2-1.3); BLOOD UREA NITROGEN 10 mg/dL (7-20); CALCIUM 9.9 mg/dL (8.4-10.2); CARBON DIOXIDE 28 mmol/L (22-30); CHLORIDE 97 mmol/L (98-107); GLUCOSE 103 mg/dL (75-110); POTASSIUM 4.2 mmol/L (3.6-5.0); TOTAL PROTEIN 7.3 g/dL (6.3-8.2)
--- NOTE | 2019-05-24 09:36 | EKG REPORT ---
SEVERITY:- ABNORMAL ECG - SINUS RHYTHM LEFT ATRIAL ABNORMALITY BORDERLINE T ABNORMALITIES, ANT-LAT LEADS : Confirmed by: Andreia Mary 24-May-2019 09:35:25
== END 2019-05-23 23:59 | disposition left against medical advice (07) ==
LOC: ER 10:41
DX: Z53.21 Procedure and treatment not carried out due to patient leaving prior to being seen by health care provider (principal); R06.02 Shortness of breath; J44.9 Chronic obstructive pulmonary disease, unspecified; F17.290 Nicotine dependence, other tobacco product, uncomplicated
CPT/HCPCS: 36415; 71046; 80053; 81001; 84484; 85025; 93005; 93010; 99281

== ENCOUNTER → 2019-06-19 | Outpatient (CLI) | payer MEDICAID ==
[2019-06-19 17:57] LABS: CREATINE KINASE MB 3.67 ng/mL (<4.55)
[2019-06-19 18:04] LABS: TROPONIN I < 0.012 ng/mL
--- NOTE | 2019-06-19 22:01 | EKG REPORT ---
SEVERITY:- ABNORMAL ECG - SINUS RHYTHM LEFT ATRIAL ABNORMALITY BORDERLINE INFERIOR Q WAVES BORDERLINE T ABNORMALITIES, ANT-LAT LEADS : Confirmed by: Michelle Jaramillo MD 19-Jun-2019 22:00:13
== END ==
LOC: OD 16:30
PROVIDERS: ATTEND Nurse Practitioner Family
DX: R07.9 Chest pain, unspecified (principal); M25.50 Pain in unspecified joint; R53.82 Chronic fatigue, unspecified
CPT/HCPCS: 36415; 82553; 84484; 86617; 86618; 93005; 93010

== ENCOUNTER 2019-06-26 15:06 | Emergency (ER) | payer MEDICAID ==
[2019-06-26 15:18] VITALS: BP 103/74
--- NOTE | 2019-06-26 16:07 | ER Document Report ---
ED Medical Screen (RME) - General Chief Complaint: Chest Pain Stated Complaint: CHEST PAIN,SHORT OF BREATH Time Seen by Provider: 06/26/19 16:01 Primary Care Provider: RHEA COLE NP [Primary Care Provider] - Follow up as needed Mode of Arrival: Ambulatory Information source: Patient Notes: 64-year-old female with history of high blood pressure and COPD presents emergency department with complaints of chest pain shortness of breath dizziness whole body pain nausea and just not feeling well for the past couple weeks. She has been evaluated by her provider who has ordered an echo and other tests. She reports the symptoms come and go. Patient reports she still smoking just not as much. I have greeted and performed a rapid initial assessment of this patient. A comprehensive ED assessment and evaluation of the patient, analysis of test results and completion of the medical decision making process will be conducted by additional ED providers. TRAVEL OUTSIDE OF THE [place] IN LAST 30 DAYS: No - Related Data Allergies/Adverse Reactions: No Known Allergies Allergy (Verified 06/26/19 15:46) Past Medical History - Social History Chew tobacco use (# tins/day): No Frequency of alcohol use: Occasional Drug Abuse: None - Past Medical History Cardiac Medical History: Reports: Hx Hypertension Denies: Hx Heart Attack Pulmonary Medical History: Reports: Hx COPD Denies: Hx Asthma Neurological Medical History: Denies: Hx Cerebrovascular Accident, Hx Seizures Renal/ Medical History: Denies: Hx Peritoneal Dialysis GI Medical History: Denies: Hx Hepatitis, Hx Hiatal Hernia, Hx Ulcer Musculoskeltal Medical History: Psychiatric Medical History: Reports: Hx Depression Denies: Hx Schizophrenia Infectious Medical History: Denies: Hx Hepatitis Past Surgical History: Reports: Hx Orthopedic Surgery - right foot, Hx Tubal Ligation. Denies: Hx Mastectomy, Hx Open Heart Surgery, Hx Pacemaker - Immunizations Hx Diphtheria, Pertussis, Tetanus Vaccination: - unknown Physical Exam - Vital signs Vitals: Temp Pulse Resp BP Pulse Ox 97.6 F 90 18 103/74 98 06/26/19 15:16 06/26/19 15:16 06/26/19 15:16 06/26/19 15:16 06/26/19 15:16 Course - Vital Signs Vital signs: Temp Pulse Resp BP Pulse Ox 97.6 F 90 18 103/74 98 06/26/19 15:16 06/26/19 15:16 06/26/19 15:16 06/26/19 15:16 06/26/19 15:16 Doctor's Discharge - Discharge Referrals: RHEA COLE INDUSTRIAL HYGIENIST [Primary Care Provider] - Follow up as needed
--- NOTE | 2019-06-26 16:39 | RADIOLOGY REPORT (SQ) ---
EXAM DESCRIPTION: CHEST 2 VIEWS COMPLETED DATE/TIME: 06/26/2019 4:21 pm REASON FOR STUDY: sob COMPARISON: 05/23/2019 EXAM PARAMETERS: NUMBER OF VIEWS: two views TECHNIQUE: Digital Frontal and Lateral radiographic views of the chest acquired. RADIATION DOSE: NA LIMITATIONS: none FINDINGS: LUNGS AND PLEURA: No opacities, masses or pneumothorax. No pleural effusion. MEDIASTINUM AND HILAR STRUCTURES: No masses or contour abnormalities. HEART AND VASCULAR STRUCTURES: Heart normal size. No evidence for failure. BONES: No acute findings. HARDWARE: None in the chest. OTHER: No other significant finding. IMPRESSION: 1. No significant interval changes since the prior examination dated 05/23/2019. No acut e findings. TECHNICAL DOCUMENTATION: JOB ID: [id number] 2010 [employer]- All Rights Reserved Reading location - IP/workstation name: [email or web address]
--- NOTE | 2019-06-26 17:28 | EKG REPORT ---
SEVERITY:- BORDERLINE ECG - SINUS RHYTHM PROBABLE LEFT ATRIAL ABNORMALITY : Confirmed by: Forrest Medina MD 26-Jun-2019 17:26:53
[2019-06-26 17:45] LABS: APPEARANCE,URINE CLEAR; BILIRUBIN,URINE NEGATIVE (NEGATIVE); COLOR,URINE STRAW; GLUCOSE, URINE NEGATIVE (NEGATIVE); KETONES,URINE NEGATIVE (NEGATIVE); LEUKOCYTE ESTERASE,URINE NEGATIVE (NEGATIVE); NITRITE,URINE NEGATIVE (NEGATIVE); PROTEIN,URINE NEGATIVE (NEGATIVE); URINE SPECIFIC GRAVITY 1.004; UROBILINOGEN,URINE NEGATIVE mg/dL (<2.0)
[2019-06-26 17:47] LABS: ABSOLUTE EOSINOPHILS # (AUTO) 0.1 10^3/uL (0.0-0.6); ABSOLUTE LYMPHOCYTES (AUTO) 1.9 10^3/uL (0.5-4.7); ABSOLUTE MONOCYTES (AUTO) 0.5 10^3/uL (0.1-1.4); ABSOLUTE NEUT (AUTO) 4.3 10^3/uL (1.7-8.2); BASOPHILS % (AUTO) 0.3 % (0-2); HEMOGLOBIN 13.8 g/dL (12.0-15.5); LYMPHOCYTES % (AUTO) 27.6 % (13-45); MEAN CORPUSCULAR HEMOGLOBIN 34.7 pg (27.0-33.4); MEAN CORPUSCULAR HGB CONC 34.6 g/dL (32.0-36.0); MEAN CORPUSCULAR VOLUME 100 fl (80-97); MONOCYTES % (AUTO) 7.6 % (3-13); PLATELET COUNT 296 10^3/uL (150-450); RED BLOOD COUNT 3.99 10^6/uL (3.72-5.28); RED CELL DISTRIBUTION WIDTH 13.8 % (11.5-14.0); SEGMENTED NEUTROPHILS % (AUTO) 62.5 % (42-78); TOTAL CELLS COUNTED % (AUTO) 100 %; WHITE BLOOD COUNT 6.9 10^3/uL (4.0-10.5)
[2019-06-26 18:05] LABS: ALBUMIN 4.6 g/dL (3.5-5.0); ALKALINE PHOSPHATASE 111 U/L (38-126); ANION GAP 11 (5-19); ASPARTATE AMINO TRANSFERASE 45 U/L (14-36); BILIRUBIN,DIRECT 0.2 mg/dL (0.0-0.4); BILIRUBIN,TOTAL 0.7 mg/dL (0.2-1.3); BLOOD UREA NITROGEN 11 mg/dL (7-20); CALCIUM 9.9 mg/dL (8.4-10.2); CARBON DIOXIDE 29 mmol/L (22-30); CHLORIDE 94 mmol/L (98-107); GLUCOSE 79 mg/dL (75-110); POTASSIUM 3.6 mmol/L (3.6-5.0); TOTAL PROTEIN 7.6 g/dL (6.3-8.2)
== END 2019-06-26 20:19 | disposition left against medical advice (07) ==
LOC: ER 15:06
DX: R07.9 Chest pain, unspecified (principal); J44.9 Chronic obstructive pulmonary disease, unspecified; R42 Dizziness and giddiness; R11.0 Nausea; I10 Essential (primary) hypertension; Z53.20 Procedure and treatment not carried out because of patient's decision for unspecified reasons
CPT/HCPCS: 36415; 71046; 80053; 81001; 84484; 85025; 93005; 93010; 99285

== ENCOUNTER → 2019-07-03 | Outpatient (CLI) | payer MEDICAID ==
--- NOTE | 2019-07-03 19:08 | XCELERA REPORT ---
[address] [address] Transthoracic Echocardiogram Report Name: NAMRATA TURK I Age: 64 yrs Gender: Female : 1955 Patient Status: Outpatient Patient Location: Study Date: 07/03/2019 08:38 AM Height: 64 in Weight: 103 lb BSA: 1.5 m2 Procedure: A complete two-dimensional transthoracic echocardiogram was performed (2D, M-mode, spectral and color flow Doppler). The study was technically adequate with some images being suboptimal in quality. Reason For Study: R07.89 Ordering Physician: RHEA COLE Performed By: Kyra Vo Interpretation Summary The left ventricular ejection fraction is normal. There is borderline concentric left ventricular hypertrophy. The left ventricle is grossly normal size. Doppler measurements suggest pseudonormalized left ventricular relaxation, which is associated with grade II/IV or mild to moderate diastolic dysfunction Wall motion cannot be accurately commented on, but no definite regional wall motion abnormalities noted. The right ventricular systolic function is normal. The left atrium is mildly dilated. The right atrium is normal in size There is a trace amount of mitral regurgitation There is no mitral valve stenosis. There is no aortic valve stenosis No aortic regurgitation is present. There is a trace to mild amount of tricuspid regurgitation Right ventricular systolic pressure is at the upper limits of normal The aortic root is not well visualized but is probably normal size. The inferior vena cava appeared normal and decreased > 50% with respiration (RAP 5-10 mmHg) There is no pericardial effusion. MMode/2D Measurements & Calculations RVDd: 2.2 cm LVIDd: 4.0 cm FS: 41.4 % Ao root diam: 2.5 cm IVSd: 0.76 cm LVIDs: 2.4 cm EDV(Teich): 72.0 ml Ao root area: 4.9 cm2 LVPWd: 0.81 cm ESV(Teich): 19.5 ml LA dimension: 3.0 cm EF(Teich): 72.8 % Doppler Measurements & Calculations MV E max preeti: MV P1/2t max preeti: Ao V2 max: LV V1 max P.1 cm/sec 71.6 cm/sec 120.8 cm/sec 5.0 mmHg MV A max preeti: MV P1/2t: 65.9 msec Ao max P.8 mmHg LV V1 max: 78.0 cm/sec MVA(P1/2t): 3.3 cm2 112.0 cm/sec MV E/A: 0.91 MV dec slope: 318.2 cm/sec2 MV dec time: 0.21 sec PA V2 max: TR max preeti: MV P1/2t-pr_phl: 78.0 cm/sec 241.1 cm/sec 65.9 msec PA max PG: TR max P.2 mmHg 2.4 mmHg Left Ventricle The left ventricle is grossly normal size. There is borderline concentric left ventricular hypertrophy. The left ventricular ejection fraction is normal. Doppler measurements suggest pseudonormalized left ventricular relaxation, which is associated with grade II/IV or mild to moderate diastolic dysfunction. Wall motion cannot be accurately commented on, but no definite regional wall motion abnormalities noted. Right Ventricle The right ventricle is grossly normal size. The right ventricular systolic function is normal. Atria The right atrium is normal in size. The left atrium is mildly dilated. Interarterial septum not well visualized and not well dopplered. Cannot comment on ASD/PFO presence. Mitral Valve The mitral valve leaflets are sclerotic, but show no functional abnormalities. There is no mitral valve stenosis. There is a trace amount of mitral regurgitation. Aortic Valve The aortic valve is grossly normal. There is no aortic valve stenosis. No aortic regurgitation is present. Tricuspid Valve The tricuspid valve is not well visualized, but is grossly normal. There is no tricuspid stenosis. There is a trace to mild amount of tricuspid regurgitation. Right ventricular systolic pressure is at the upper limits of normal. Pulmonic Valve The pulmonic valve is not well visualized. Great Vessels The aortic root is not well visualized but is probably normal size. The inferior vena cava appeared normal and decreased > 50% with respiration (RAP 5-10 mmHg). Effusions There is no pericardial effusion. : RHEA COLE Shyamal
== END ==
LOC: SP 08:11
PROVIDERS: ATTEND Nurse Practitioner Family
DX: R07.89 Other chest pain (principal)
CPT/HCPCS: 93306

== ENCOUNTER 2019-08-16 16:49 | Emergency (ER) | payer OTHER, MEDICAID ==
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
--- NOTE | 2019-08-16 17:49 | RADIOLOGY REPORT (SQ) ---
EXAM DESCRIPTION: CHEST SINGLE VIEW IMAGES COMPLETED DATE/TIME: 08/16/2019 5:39 pm REASON FOR STUDY: short of breath COMPARISON: 06/26/2019 EXAM PARAMETERS: NUMBER OF VIEWS: One view. TECHNIQUE: Single frontal radiographic view of the chest acquired. RADIATION DOSE: NA LIMITATIONS: None. FINDINGS: LUNGS AND PLEURA: Small left sided pleural effusion with mild associated linear consolidat ion. MEDIASTINUM AND HILAR STRUCTURES: No masses. Contour normal. HEART AND VASCULAR STRUCTURES: Heart normal in size. Vascular calcifications. BONES: No acute findings. HARDWARE: None in the chest. OTHER: No other significant finding. IMPRESSION: Trace left pleural effusion with associated opacities, possibly atelectasis or infection . TECHNICAL DOCUMENTATION: JOB ID: [id number] 2010 [employer]- All Rights Reserved Reading location - IP/workstation name: [email or web address]
[2019-08-16 17:50] LABS: ABSOLUTE BASOPHILS # (AUTO) 0.1 10^3/uL (0.0-0.2); ABSOLUTE EOSINOPHILS # (AUTO) 0.2 10^3/uL (0.0-0.6); ABSOLUTE LYMPHOCYTES (AUTO) 1.4 10^3/uL (0.5-4.7); ABSOLUTE MONOCYTES (AUTO) 0.5 10^3/uL (0.1-1.4); ABSOLUTE NEUT (AUTO) 3.7 10^3/uL (1.7-8.2); BASOPHILS % (AUTO) 0.9 % (0-2); EOSINOPHILS % (AUTO) 3.8 % (0-6); HEMATOCRIT 36.7 % (36.0-47.0); HEMOGLOBIN 12.9 g/dL (12.0-15.5); LYMPHOCYTES % (AUTO) 23.7 % (13-45); MEAN CORPUSCULAR HEMOGLOBIN 35.3 pg (27.0-33.4); MEAN CORPUSCULAR VOLUME 101 fl (80-97); MONOCYTES % (AUTO) 8.2 % (3-13); PLATELET COUNT 302 10^3/uL (150-450); RED BLOOD COUNT 3.64 10^6/uL (3.72-5.28); RED CELL DISTRIBUTION WIDTH 13.6 % (11.5-14.0); SEGMENTED NEUTROPHILS % (AUTO) 63.4 % (42-78); TOTAL CELLS COUNTED % (AUTO) 100 %; WHITE BLOOD COUNT 5.9 10^3/uL (4.0-10.5)
[2019-08-16 17:55] LABS: APPEARANCE,URINE CLEAR; BILIRUBIN,URINE NEGATIVE (NEGATIVE); COLOR,URINE STRAW; GLUCOSE, URINE NEGATIVE (NEGATIVE); KETONES,URINE NEGATIVE (NEGATIVE); PROTEIN,URINE NEGATIVE (NEGATIVE); URINE SPECIFIC GRAVITY 1.002; UROBILINOGEN,URINE NEGATIVE mg/dL (<2.0)
[2019-08-16 18:07] LABS: URINE AMPHETAMINES SCREEN NEGATIVE; URINE BARBITURATES SCREEN NEGATIVE; URINE COCAINE SCREEN NEGATIVE; URINE MARIJUANA (THC) SCREEN NEGATIVE; URINE METHADONE SCREEN NEGATIVE; URINE PHENCYCLIDINE SCREEN NEGATIVE
[2019-08-16 18:08] LABS: ALBUMIN 3.8 g/dL (3.5-5.0); ALCOHOL 45 mg/dL (NONE DETECTED); ALKALINE PHOSPHATASE 94 U/L (38-126); ANION GAP 6 (5-19); ASPARTATE AMINO TRANSFERASE 43 U/L (14-36); BILIRUBIN,TOTAL 0.3 mg/dL (0.2-1.3); BLOOD UREA NITROGEN 6 mg/dL (7-20); CALCIUM 9.6 mg/dL (8.4-10.2); CARBON DIOXIDE 28 mmol/L (22-30); CHLORIDE 104 mmol/L (98-107); GLUCOSE 89 mg/dL (75-110); POTASSIUM 4.5 mmol/L (3.6-5.0); TOTAL PROTEIN 6.5 g/dL (6.3-8.2)
[2019-08-16 18:10] LABS: URINE BENZODIAZEPINES SCREEN UNCONFIRMED POSITIVE
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
[2019-08-16 20:03] VITALS: BP 154/82
[2019-08-16] MEDS ORDERED: MORPHINE SULFATE 10 MG/ML INJ IV ONE ×2 (20:03→20:04)
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
== END 2019-08-16 21:11 | disposition home or self-care (01) ==
LOC: ER 16:49
DX: R07.81 Pleurodynia (principal); V49.9XXA Car occupant (driver) (passenger) injured in unspecified traffic accident, initial encounter; W22.11XA Striking against or struck by driver side automobile airbag, initial encounter; J43.9 Emphysema, unspecified; R74.0 Nonspecific elevation of levels of transaminase and lactic acid dehydrogenase [LDH]; J98.11 Atelectasis; R06.02 Shortness of breath; I10 Essential (primary) hypertension; Z87.891 Personal history of nicotine dependence; Z79.899 Other long term (current) drug therapy
CPT/HCPCS: 99285; 96374; 36415; 80307 ×2; 83690; 85025; 80053; 81001; 71045; 71260; 74177; J2270

== ENCOUNTER 2020-01-23 10:40 | Emergency (ER) | payer MEDICAID ==
--- NOTE | 2020-01-23 11:19 | EKG REPORT ---
SEVERITY:- ABNORMAL ECG - SINUS RHYTHM LEFT ATRIAL ABNORMALITY : Confirmed by: Dilan Siegel MD 23-Jan-2020 11:18:23
--- NOTE | 2020-01-23 11:29 | ER Document Report ---
ED Medical Screen (RME) - General Chief Complaint: Chest Pain > 30 Stated Complaint: CHEST PAIN Time Seen by Provider: 01/23/20 11:22 Primary Care Provider: RHEA COLE NP [Primary Care Provider] - Follow up as needed Mode of Arrival: Ambulatory Information source: Patient Notes: 64-year-old female presents to ED for complaint of chest pain radiating around to both sides of the back. She states it hurts to move or breathe. She states she started to feel a little weak as well. She states she does have some mild COPD but this does not feel like her sleep OPD. She states she has not had any fevers nausea or vomiting. She is alert oriented respirations regular and unlabored. She does smoke 4 cigarettes a day drinks some wine maybe weekly and does not use any illicit drugs. She states she does have a history of COPD, high blood pressure, pneumonia but has had a pneumonia shot, fractured right arm, surgery for her foot bilateral tubal ligation and her right eye. I have greeted and performed a rapid initial assessment of this patient. A comprehensive ED assessment and evaluation of the patient, analysis of test results and completion of medical decision making process will be conducted by an additional ED providers. TRAVEL OUTSIDE OF THE [place] IN LAST 30 DAYS: No - Related Data Allergies/Adverse Reactions: No Known Allergies Allergy (Verified 01/23/20 11:21) Past Medical History - Past Medical History Cardiac Medical History: Reports: Hx Hypertension Denies: Hx Heart Attack Pulmonary Medical History: Reports: Hx COPD Denies: Hx Asthma Neurological Medical History: Denies: Hx Cerebrovascular Accident, Hx Seizures Renal/ Medical History: Denies: Hx Peritoneal Dialysis GI Medical History: Denies: Hx Hepatitis, Hx Hiatal Hernia, Hx Ulcer Musculoskeltal Medical History: Psychiatric Medical History: Reports: Hx Depression Denies: Hx Schizophrenia Infectious Medical History: Denies: Hx Hepatitis Past Surgical History: Reports: Hx Orthopedic Surgery - right foot, Hx Tubal Ligation. Denies: Hx Mastectomy, Hx Open Heart Surgery, Hx Pacemaker - Immunizations Hx Diphtheria, Pertussis, Tetanus Vaccination: - unknown Physical Exam - Vital signs Vitals: Temp Pulse Resp BP Pulse Ox 98.2 F 78 18 117/70 98 01/23/20 10:53 01/23/20 10:53 01/23/20 10:53 01/23/20 10:53 01/23/20 10:53 Course - Vital Signs Vital signs: Temp Pulse Resp BP Pulse Ox 98.2 F 78 18 117/70 98 01/23/20 10:53 01/23/20 10:53 01/23/20 10:53 01/23/20 10:53 01/23/20 10:53 Doctor's Discharge - Discharge Referrals: RHEA COLE NP [Primary Care Provider] - Follow up as needed
[2020-01-23 12:05] LABS: ABSOLUTE BASOPHILS # (AUTO) 0.1 10^3/uL (0.0-0.2); ABSOLUTE EOSINOPHILS # (AUTO) 0.2 10^3/uL (0.0-0.6); ABSOLUTE LYMPHOCYTES (AUTO) 1.5 10^3/uL (0.5-4.7); ABSOLUTE MONOCYTES (AUTO) 0.4 10^3/uL (0.1-1.4); ABSOLUTE NEUT (AUTO) 2.5 10^3/uL (1.7-8.2); BASOPHILS % (AUTO) 2.2 % (0-2); EOSINOPHILS % (AUTO) 3.7 % (0-6); HEMATOCRIT 39.5 % (36.0-47.0); HEMOGLOBIN 13.8 g/dL (12.0-15.5); LYMPHOCYTES % (AUTO) 32.7 % (13-45); MEAN CORPUSCULAR HEMOGLOBIN 34.9 pg (27.0-33.4); MEAN CORPUSCULAR VOLUME 100 fl (80-97); MONOCYTES % (AUTO) 8.3 % (3-13); PLATELET COUNT 333 10^3/uL (150-450); RED BLOOD COUNT 3.96 10^6/uL (3.72-5.28); RED CELL DISTRIBUTION WIDTH 13.2 % (11.5-14.0); SEGMENTED NEUTROPHILS % (AUTO) 53.1 % (42-78); TOTAL CELLS COUNTED % (AUTO) 100 %; WHITE BLOOD COUNT 4.6 10^3/uL (4.0-10.5)
[2020-01-23 12:13] LABS: APPEARANCE,URINE CLEAR; BILIRUBIN,URINE NEGATIVE (NEGATIVE); COLOR,URINE STRAW; GLUCOSE, URINE NEGATIVE (NEGATIVE); KETONES,URINE NEGATIVE (NEGATIVE); LEUKOCYTE ESTERASE,URINE SMALL (NEGATIVE); NITRITE,URINE NEGATIVE (NEGATIVE); PROTEIN,URINE NEGATIVE (NEGATIVE); URINE SPECIFIC GRAVITY 1.005; UROBILINOGEN,URINE NEGATIVE mg/dL (<2.0)
[2020-01-23 12:13] LABS: ALBUMIN 4.7 g/dL (3.5-5.0); ALKALINE PHOSPHATASE 98 U/L (38-126); ANION GAP 10 (5-19); ASPARTATE AMINO TRANSFERASE 48 U/L (14-36); BILIRUBIN,DIRECT 0.3 mg/dL (0.0-0.4); BILIRUBIN,TOTAL 0.8 mg/dL (0.2-1.3); BLOOD UREA NITROGEN 7 mg/dL (7-20); CALCIUM 10.4 mg/dL (8.4-10.2); CARBON DIOXIDE 28 mmol/L (22-30); CHLORIDE 96 mmol/L (98-107); CREATINE KINASE 238 U/L (30-135); GLUCOSE 86 mg/dL (75-110); POTASSIUM 4.5 mmol/L (3.6-5.0)
--- NOTE | 2020-01-23 12:32 | RADIOLOGY REPORT (SQ) ---
EXAM DESCRIPTION: CHEST 2 VIEWS IMAGES COMPLETED DATE/TIME: 01/23/2020 12:16 pm REASON FOR STUDY: chest pain COMPARISON: AP view of the chest from 08/16/2019. EXAM PARAMETERS: NUMBER OF VIEWS: Two views. TECHNIQUE: An AP view of the chest was obtained. RADIATION DOSE: NA LIMITATIONS: None. FINDINGS: LUNGS AND PLEURA: COPD without a superimposed acute consolidation, pleural effusion or pne umothorax. MEDIASTINUM AND HILAR STRUCTURES: No mediastinal or hilar contour abnormality. HEART AND VASCULAR STRUCTURES: The cardiac silhouette and pulmonary vasculature are within normal canales its. BONES: No acute findings. HARDWARE: None in the chest. OTHER: No other finding. IMPRESSION: COPD without a superimposed acute cardiopulmonary process. TECHNICAL DOCUMENTATION: JOB ID: [id number] 2010 [employer]- All Rights Reserved Reading location - IP/workstation name: [email or web address]
--- NOTE | 2020-01-23 16:18 | ER Document Report ---
ED General - General Chief Complaint: Chest Pain > 30 Stated Complaint: CHEST PAIN Time Seen by Provider: 01/23/20 11:22 Primary Care Provider: RHEA COLE NP [Primary Care Provider] - Follow up as needed Mode of Arrival: Ambulatory Information source: Patient Notes: 01/23/20 11:27 - [id number] : 1955 Patient Age: 64 c/o chest pain. pt states complaint started last night and has worsened today with radiating mid chest pain though back, worsening SOB today with generalized body weakness, pt denies N/V, Stacie Soto DIETETIC TECHNICIAN REGISTERED assessing complaint and discussing continued POC with pt Initialized on 01/23/20 11:27 - END OF NOTE ED Medical Screen (Domingo angela) - General Chief Complaint: Chest Pain > 30 Stated Complaint: CHEST PAIN Time Seen by Provider: 01/23/20 11:22 Primary Care Provider: RHEA COLE NP [Primary Care Provider] - Follow up as needed Mode of Arrival: Ambulatory Information source: Patient Notes: 64-year-old female presents to ED for complaint of chest pain radiating around to both sides of the back. She states it hurts to move or breathe. She states she started to feel a little weak as well. She states she does have some mild COPD but this does not feel like her sleep OPD. She states she has not had any fevers nausea or vomiting. She is alert oriented respirations regular and unlabored. She does smoke 4 cigarettes a day drinks some wine maybe weekly and does not use any illicit drugs. She states she does have a history of COPD, high blood pressure, pneumonia but has had a pneumonia shot, fractured right arm, surgery for her foot bilateral tubal ligation and her right eye. MY NOTES 64-year-old female who appears to be intoxicated complaining of epigastric pain which radiates to her back. Patient drinks a glass of white Zinfandel on a nightly basis. Her MCV is 100 and she has never had any PUD or alcohol gastritis in the past. Patient has been on a nicotine patch for the last 1 week because she used to smoke 1 pack of cigarettes daily since she was a young adult. Patient has a history of COPD. Her chest x-ray per radiology reports advises COPD. Her troponin is negative today. Patient denies any nausea fever chills diarrhea constipation abuse skin rash cephalgia nuchal rigidity TRAVEL OUTSIDE OF THE [place] IN LAST 30 DAYS: No - HPI Onset: Yesterday Onset/Duration: Sudden, Persistent Quality of pain: Achy Severity: Mild Pain Level: 1 Associated symptoms: Chest pain Exacerbated by: Deep breathing Relieved by: Denies Similar symptoms previously: No Recently seen / treated by doctor: No - Related Data Allergies/Adverse Reactions: No Known Allergies Allergy (Verified 01/23/20 11:21) Past Medical History - General Information source: Patient - Social History Smoking Status: Current Every Day Smoker Cigarette use (# per day): Yes Chew tobacco use (# tins/day): No Smoking Education Provided: Yes Frequency of alcohol use: Occasional Drug Abuse: None Lives with: Family Family History: Reviewed & Not Pertinent Patient has suicidal ideation: No - Past Medical History Cardiac Medical History: Reports: Hx Hypertension Denies: Hx Heart Attack Pulmonary Medical History: Reports: Hx COPD Denies: Hx Asthma Neurological Medical History: Denies: Hx Cerebrovascular Accident, Hx Seizures Renal/ Medical History: Denies: Hx Peritoneal Dialysis GI Medical History: Denies: Hx Hepatitis, Hx Hiatal Hernia, Hx Ulcer Musculoskeletal Medical History: Psychiatric Medical History: Reports: Hx Depression Denies: Hx Schizophrenia Infectious Medical History: Denies: Hx Hepatitis Past Surgical History: Reports: Hx Orthopedic Surgery - right foot, Hx Tubal Ligation. Denies: Hx Mastectomy, Hx Open Heart Surgery, Hx Pacemaker - Immunizations Hx Diphtheria, Pertussis, Tetanus Vaccination: - unknown Review of Systems - Review of Systems Constitutional: No symptoms reported EENT: No symptoms reported Cardiovascular: See HPI, Chest pain Respiratory: No symptoms reported Gastrointestinal: See HPI, Other - epigastric pain Genitourinary: No symptoms reported Female Genitourinary: No symptoms reported Musculoskeletal: No symptoms reported Skin: No symptoms reported Hematologic/Lymphatic: No symptoms reported Neurological/Psychological: No symptoms reported Physical Exam - Vital signs Vitals: Temp Pulse Resp BP Pulse Ox 98.2 F 78 18 117/70 98 01/23/20 10:53 01/23/20 10:53 01/23/20 10:53 01/23/20 10:53 01/23/20 10:53 Interpretation: Normal - General General appearance: Appears well - HEENT Head: Normocephalic, Atraumatic Eyes: Normal Pupils: PERRL Mouth/Lips: Normal Mucous membranes: Normal Pharynx: Normal Neck: Normal - Respiratory Respiratory status: No respiratory distress Chest status: Nontender Breath sounds: Normal Chest palpation: Normal - Cardiovascular Rhythm: Regular - Rectal Hemorrhoids: Other - deferred - Genitourinary Bimanuel exam: Other - deferred - Back Back: Normal - Extremities General upper extremity: Normal inspection General lower extremity: Normal inspection - Neurological Neuro grossly intact: Yes Cognition: Normal Orientation: AAOx4 [place] Coma Scale Eye Opening: Spontaneous Shahrzad Coma Scale Verbal: Oriented Shahrzad Coma Scale Motor: Obeys Commands [place] Coma Scale Total: 15 Speech: Normal Motor strength normal: LUE, RUE, LLE, RLE Sensory: Normal - Psychological Associated symptoms: Normal mood - Skin Skin Temperature: Warm Skin Moisture: Dry Course - Vital Signs Vital signs: Temp Pulse Resp BP Pulse Ox 97.8 F 78 14 115/74 97 01/23/20 17:00 01/23/20 10:53 01/23/20 17:01 01/23/20 17:00 01/23/20 17:01 - Laboratory Result Diagrams: 01/23/20 11:38 01/23/20 11:38 Laboratory results interpreted by me: 01/23/20 01/23/20 01/23/20 11:34 11:38 11:38 MCV 100 H MCH 34.9 H Baso % (Auto) 2.2 H Sodium 134.2 L Chloride 96 L Calcium 10.4 H AST 48 H Creatine Kinase 238 H Ur Leukocyte Esterase SMALL H - Diagnostic Test Radiology reviewed: Reports reviewed Discharge - Discharge Clinical Impression: Pernicious anemia, Alcohol use GERD (gastroesophageal reflux disease) Qualifiers: Esophagitis presence: with esophagitis Qualified Code(s): K21.0 - Gastro- esophageal reflux disease with esophagitis Condition: Good Disposition: HOME, SELF-CARE Additional Instructions: Follow-up with personal doctor return to ER as needed take medicines as directed encourage fluids; take Carafate as directed also you need to get some either sublingual B12 for under your tongue daily basis or IM shot of B12 from your doctor's office monthly for your pernicious anemia. Prescriptions: Sucralfate [Carafate 1 gm Tablet] 1 gm PO ACHS #40 tablet Referrals: RHEA COLE NP [Primary Care Provider] - Follow up as needed
[2020-01-23] MEDS ORDERED: SUCRALFATE 1 GM TABLET PO ONE (16:46)
[2020-01-23] MEDS ORDERED: CYANOCOBALAMIN (VITAMIN B-12) INJ 1000 MCG/1 ML VIAL IM ONE (16:46)
[2020-01-23 17:10] LABS: URINE BARBITURATES SCREEN NEGATIVE; URINE COCAINE SCREEN NEGATIVE; URINE METHADONE SCREEN NEGATIVE; URINE PHENCYCLIDINE SCREEN NEGATIVE
[2020-01-23 17:15] LABS: URINE AMPHETAMINES SCREEN UNCONFIRMED POSITIVE; URINE BENZODIAZEPINES SCREEN UNCONFIRMED POSITIVE; URINE MARIJUANA (THC) SCREEN UNCONFIRMED POSITIVE
[2020-01-23 17:38] VITALS: BP 115/74
== END 2020-01-23 19:45 | disposition home or self-care (01) ==
LOC: ER 10:40
DX: K21.0 Gastro-esophageal reflux disease with esophagitis (principal); D51.0 Vitamin B12 deficiency anemia due to intrinsic factor deficiency; F10.10 Alcohol abuse, uncomplicated; R10.13 Epigastric pain; R07.9 Chest pain, unspecified; M54.9 Dorsalgia, unspecified; F17.210 Nicotine dependence, cigarettes, uncomplicated; J44.9 Chronic obstructive pulmonary disease, unspecified; I10 Essential (primary) hypertension
CPT/HCPCS: 93005; 99285; 96372; 36415; 87086; 80307 ×2; 82550; 83735; 85025; 80053; 81001; 84484; 71046; 93010; J3420; J3490

== ENCOUNTER 2020-02-05 08:55 | Day surgery (SDC) | payer MEDICAID ==
[~2020-02-05 08:55] MED LIST: BUPIVACAINE HCL 0.75% INJ/PF (7.5 MG/1 ML) 10 ML SDV OS PRN; CHONDR SU A NA/HYALUR INTRAOC KIT (SURGICARE) ONE; EPINEPHRINE INJ/PF 1 MG/1 ML AMPULE ONE; FENTANYL CITRATE INJ/PF 100 MCG/2 ML AMPUL ONE; KETOROLAC TROMETHAMINE 0.45% 4 DROP/0.4 ML DROPERETTE OS PRN; LIDOCAINE 1% INJ-PF (10 MG/ML) 30 ML SDV ONE; LIDOCAINE 4% INJ/PF (40 MG/ML) 5 ML AMPUL OS PRN; MIDAZOLAM 2 MG/2 ML INJ ONE; ONDANSETRON HCL INJ/PF 4 MG/2 ML SDV ONE
[2020-02-05] MEDS: TROPICAMIDE 1% OPH SOLN 15 ML OS PRN ×3 (09:06→09:30)
[2020-02-05] MEDS: TETRACAINE HCL 0.5% OPH SOLN 4 ML OS PRN ×3 (09:06→09:50)
[2020-02-05] MEDS: BESIFLOXACIN HCL 0.6% OPH SUSP 5 ML BOTTLE OS PRN ×4 (09:06→10:13)
[2020-02-05] MEDS: CYCLOPENTOLATE 0.2%/PHENYLEPHRINE 1% OPH SOLN 2 ML OS PRN ×3 (09:06→09:30)
[2020-02-05] MEDS: PREDNISOLONE ACETATE 1% OPH SUSP 5 ML OS PRN ×2 (10:13)
[2020-02-05] MEDS: DORZOLAMIDE HCL 2%/TIMOLOL MALEAT 0.5% OPH SOLN 10 ML OS PRN ×2 (10:13)
--- NOTE | 2020-02-05 14:42 | Operative Report ---
Operative Report-[facility] Operative Report: DATE OF SURGERY: 02/05/2020 PREOPERATIVE DIAGNOSIS: CATARACT, LEFT EYE. POSTOPERATIVE DIAGNOSIS: CATARACT, LEFT EYE. PROCEDURE PERFORMED: PHACOEMULSIFICATION WITH POSTERIOR CHAMBER INTRAOCULAR LENS, LEFT EYE. Intraocular Lens Model : SN 60 WF 20.0 Total Phaco Time: 6.06 CDE SURGEON: CAILIN SCHWARTZ MD ANESTHESIA: TOPICAL WITH MAC. INDICATIONS FOR SURGERY: Difficultly identifying birds and reading small print PROCEDURE: The patient was brought to the Operating Room and placed on the operative table. Following tetracaine drops, topical anesthesia was administered. This consisted of instrument wipe pledgets soaked in a solution of 4% Xylocaine mixed with 0.75% Marcaine in a 1:2 ratio. A 2 x 1 cm pledget was placed in the superior fornix. A 1 x 1 cm pledget was placed in the inferior fornix. The eye was patched shut for 5 minutes. The patch was removed. The eye was sterilely prepped and draped in the usual manner. Lid speculum was placed in the eye. The pledgets were removed. 4-0 black silk sutures were placed around the superior and the inferior rectus muscles to be used as traction. A conjunctival peritomy was made at the 10 o'clock position. Hemostasis was obtained with bipolar cautery. A posterior limbal groove was created using a crescent knife and dissected anteriorly towards the cornea. A sharp point blade was used to create a paracentesis site at the 2 o'clock position. 0.2 cc non preserved Lidocaine was injected into the anterior chamber. A 2.4 mm keratome was used to enter the anterior chamber through the groove. Viscoelastic was injected into the anterior chamber. An anterior capsulotomy was performed using Utrata forceps in a capsulorrhexis fashion. Hydrodissection and hydrodelineation were performed. Phacoemulsification was performed in [id number] technique. Following this, the I/A unit was used to remove residual cortex. Viscoelastic was injected into the capsular bag. The Intraocular lens was placed in the capsular bag. The I/A unit was used to remove residual viscoelastic. The wound was seen to be watertight under high and low pressure, and no sutures were placed. The intraocular lens was well centered. The pressure was adjusted in the eye to normal pressure. The 4-0 black silk sutures and lid speculum were removed. The eye was shielded after Besivance,prednisolone, and Cosopt drops were placed. The patient tolerated the procedure well and was sent to the Recovery Room in good condition.
== END 2020-02-05 10:45 | disposition home or self-care (01) ==
LOC: SC 08:55
PROVIDERS: ATTEND Ophthalmology
DX: H25.812 Combined forms of age-related cataract, left eye (principal); Z96.1 Presence of intraocular lens; I10 Essential (primary) hypertension; F41.8 Other specified anxiety disorders; J44.9 Chronic obstructive pulmonary disease, unspecified; F17.210 Nicotine dependence, cigarettes, uncomplicated; Z79.899 Other long term (current) drug therapy; K21.9 Gastro-esophageal reflux disease without esophagitis; D64.9 Anemia, unspecified
CPT/HCPCS: 66984; V2632; J2250; J3490 ×6; J0171; J3010; J2405

== ENCOUNTER → 2020-03-18 | Outpatient (CLI) | payer MEDICAID ==
[2020-03-18 17:44] LABS: ABSOLUTE BASOPHILS # (AUTO) 0.1 10^3/uL (0.0-0.2); ABSOLUTE EOSINOPHILS # (AUTO) 0.4 10^3/uL (0.0-0.6); ABSOLUTE LYMPHOCYTES (AUTO) 1.8 10^3/uL (0.5-4.7); ABSOLUTE MONOCYTES (AUTO) 0.5 10^3/uL (0.1-1.4); ABSOLUTE NEUT (AUTO) 2.9 10^3/uL (1.7-8.2); BASOPHILS % (AUTO) 1.4 % (0-2); EOSINOPHILS % (AUTO) 7.7 % (0-6); HEMATOCRIT 37.1 % (36.0-47.0); HEMOGLOBIN 13.3 g/dL (12.0-15.5); LYMPHOCYTES % (AUTO) 32.2 % (13-45); MEAN CORPUSCULAR HEMOGLOBIN 34.8 pg (27.0-33.4); MEAN CORPUSCULAR HGB CONC 35.7 g/dL (32.0-36.0); MEAN CORPUSCULAR VOLUME 97 fl (80-97); MONOCYTES % (AUTO) 8.8 % (3-13); PLATELET COUNT 319 10^3/uL (150-450); RED BLOOD COUNT 3.82 10^6/uL (3.72-5.28); RED CELL DISTRIBUTION WIDTH 12.8 % (11.5-14.0); SEGMENTED NEUTROPHILS % (AUTO) 49.9 % (42-78); TOTAL CELLS COUNTED % (AUTO) 100 %; WHITE BLOOD COUNT 5.7 10^3/uL (4.0-10.5)
[2020-03-18 18:19] LABS: ALBUMIN 4.6 g/dL (3.5-5.0); ALKALINE PHOSPHATASE 93 U/L (38-126); ANION GAP 11 (5-19); ASPARTATE AMINO TRANSFERASE 28 U/L (14-36); BILIRUBIN,DIRECT 0.1 mg/dL (0.0-0.4); BILIRUBIN,TOTAL 0.5 mg/dL (0.2-1.3); BLOOD UREA NITROGEN 11 mg/dL (7-20); CALCIUM 10.4 mg/dL (8.4-10.2); CARBON DIOXIDE 23 mmol/L (22-30); CHLORIDE 103 mmol/L (98-107); GLUCOSE 56 mg/dL (75-110); POTASSIUM 4.7 mmol/L (3.6-5.0); TOTAL PROTEIN 6.9 g/dL (6.3-8.2)
--- NOTE | 2020-03-18 19:12 | RADIOLOGY REPORT (SQ) ---
EXAM DESCRIPTION: RIBS LEFT W/PA CHEST IMAGES COMPLETED DATE/TIME: 03/18/2020 5:13 pm REASON FOR STUDY: RIB PAIN ON LEFT SIDE R53.81 OTHER MALAISE B37.0 CANDIDAL STOMATITIS Z11.4 ENCO UNTER FOR SCREENING FOR HUMAN IMMUNODEFICIENCY VIR COMPARISON: None. TECHNIQUE: Frontal view of the chest and additional views of the left ribs acquired. NUMBER OF VIEWS: Five view. LIMITATIONS: None. FINDINGS: FRONTAL CXR: No pneumothorax. No pleural effusion. No atelectasis or infiltrates. RIBS: No definite displaced acute fracture. Chronic appearing anterior left 3rd rib fracture. OTHER: No other significant finding. IMPRESSION: No pneumothorax. No definite acute fracture. Chronic appearing left anterior 3rd rib f racture. COMMENT: SITE OF TRAUMA/COMPLAINT MARKED/STAMP COMPLETED: No TECHNICAL DOCUMENTATION: JOB ID: [id number] 2010 [employer]- All Rights Reserved Reading location - IP/workstation name: [email or web address]
== END ==
LOC: OD 16:44
PROVIDERS: ATTEND Nurse Practitioner Family
DX: B37.0 Candidal stomatitis (principal); R53.81 Other malaise; R07.81 Pleurodynia; Z11.4 Encounter for screening for human immunodeficiency virus [HIV]
CPT/HCPCS: 36415; 80053; 85025; 87536

== ENCOUNTER 2020-03-22 12:35 | Emergency (ER) | payer MEDICAID ==
--- NOTE | 2020-03-22 14:38 | RADIOLOGY REPORT (SQ) ---
EXAM DESCRIPTION: CT CHEST WITHOUT IMAGES COMPLETED DATE/TIME: 03/22/2020 2:12 pm REASON FOR STUDY: L anteriolateral lower rib pain COMPARISON: 09/22/2018 TECHNIQUE: CT scan performed of the chest without intravenous contrast. Images reviewed with lung, soft tissue and bone windows. Reconstructed coronal and sagittal MPR images reviewed. All images st ored on PACS. All CT scanners at this facility use dose modulation, iterative reconstruction, and/or weight based d osing when appropriate to reduce radiation dose to as low as reasonably achievable (ALARA). [facility]: Dose Right [facility]: CareDose [facility]: Dose Right [facility]: Teradose 4D [facility]: [employer] Technologies RADIATION DOSE: CT Rad equipment meets quality standard of care and radiation dose reduction techniq ues were employed. CTDIvol: 4.8 mGy. DLP: 185 mGy-cm. mGy. LIMITATIONS: No technical limitations. FINDINGS: LUNGS AND PLEURA: Bullous emphysema. No parenchymal opacities. HILAR AND MEDIASTINAL STRUCTURES: No identified masses or abnormal nodes. No obvious aneurysm. HEART AND VASCULAR STRUCTURES: No aneurysm. No pericardial effusion. UPPER ABDOMEN: No significant findings. Limited exam. THYROID AND OTHER SOFT TISSUES: No masses. No adenopathy. BONES: No significant finding. HARDWARE: None in the chest. OTHER: No other significant findings. IMPRESSION: Bullous emphysema. No other significant finding. TECHNICAL DOCUMENTATION: JOB ID: [id number] Quality ID # [id number]: Final reports with documentation of one or more dose reduction techniques (e.g., Au tomated exposure control, adjustment of the mA and/or kV according to patient size, use of iterative reconstruction technique) 2010 [employer]- All Rights Reserved Reading location - IP/workstation name: [email or web address]
[2020-03-22 15:56] VITALS: BP 148/80
--- NOTE | 2020-03-22 16:01 | ER Document Report ---
HPI - HPI Time Seen by Provider: 03/22/20 12:52 Pain Level: 0 Notes: 65-year-old female patient presenting to the emergency department with tenderness to her left lower ribs. Patient reports she has not had an injury. She reports the pain is worse with a deep breath or with moving. She states she saw her primary care provider few days ago who did rib x-rays, she has not gotten these results yet. She denies any chest pain or shortness of breath. - ROS Systems Reviewed and Negative: Yes All other systems reviewed and negative - REPRODUCTIVE Reproductive: DENIES: : - MUSCULOSKELETAL Notes: Left anterior lateral rib pain Past Medical History - General Information source: Patient - Social History Smoking Status: Current Every Day Smoker Chew tobacco use (# tins/day): No Frequency of alcohol use: daily Drug Abuse: None Family History: Reviewed & Not Pertinent Patient has homicidal ideation: No - Past Medical History Cardiac Medical History: Reports: Hx Hypertension Denies: Hx Heart Attack Pulmonary Medical History: Reports: Hx COPD Denies: Hx Asthma Neurological Medical History: Denies: Hx Cerebrovascular Accident, Hx Seizures Renal/ Medical History: Denies: Hx Peritoneal Dialysis GI Medical History: Denies: Hx Hepatitis, Hx Hiatal Hernia, Hx Ulcer Musculoskeletal Medical History: Psychiatric Medical History: Reports: Hx Depression Denies: Hx Schizophrenia Infectious Medical History: Denies: Hx Hepatitis Past Surgical History: Reports: Hx Orthopedic Surgery - right foot, Hx Tubal Ligation. Denies: Hx Hysterectomy, Hx Mastectomy, Hx Open Heart Surgery, Hx Pacemaker - Immunizations Hx Diphtheria, Pertussis, Tetanus Vaccination: - unknown Vertical Provider Document - CONSTITUTIONAL Notes: PHYSICAL EXAMINATION: GENERAL: Well-appearing, well-nourished and in no acute distress. HEAD: Atraumatic, normocephalic. EYES: Pupils equal round and reactive to light, extraocular movements intact, conjunctiva are normal. ENT: Nares patent, oropharynx clear without exudates. Moist mucous membranes. NECK: Normal range of motion, supple without lymphadenopathy LUNGS: Breath sounds clear to auscultation bilaterally and equal. No wheezes rales or rhonchi. HEART: Regular rate and rhythm without murmurs ABDOMEN: Soft, nontender, nondistended abdomen. No guarding, no rebound. No masses appreciated. Female : deferred Musculoskeletal: Normal range of motion, no pitting or edema. No cyanosis. Point tenderness over the left lowest anterior lateral rib. No rash. No crepitus or deformity. NEUROLOGICAL: Cranial nerves grossly intact. Normal speech, normal gait. Normal sensory, motor exams PSYCH: Normal mood, normal affect. SKIN: Warm, Dry, normal turgor, no rashes or lesions noted. - INFECTION CONTROL TRAVEL OUTSIDE OF THE [place] IN LAST 30 DAYS: No Course - Re-evaluation Re-evalutation: Patient had a negative rib x-rays done outpatient, these records are in the [facility] system. We performed a chest CT today which also showed no acute findings. She does have emphysema. The diagnosis today is likely pleurisy. Patient will be started on appropriate medications. She will follow-up with her primary care provider, she has an appointment scheduled for tomorrow. She is not been in any respiratory distress. - Vital Signs Vital signs: Temp Pulse Resp BP Pulse Ox 98.1 F 91 18 148/80 H 98 03/22/20 15:54 03/22/20 15:54 03/22/20 15:54 03/22/20 15:54 03/22/20 15:54 Discharge - Discharge Clinical Impression: Pleurisy Condition: Stable Disposition: HOME, SELF-CARE Additional Instructions: Pleurisy Your chest pain has been diagnosed as pleuritis (pleurisy). This is an inflammation of the surface of the lung tissue. It can be caused by a virus or, occasionally, old scar tissue. It is painful but, for the most part, not a serious problem. This pain is usually made worse by deep breathing, coughing, or sudden movements of the upper body or arms. The treatment is relief of symptoms. It includes rest, antiinflammatory medication, and pain medicine. Resolution of the pain is usually rapid once antiinflammatory medication is started. Warning signs of a more serious problem include: a fever, shortness of breath, pain that radiates to your jaw, shoulders or arms, or coughing up bloody sputum. If any of these symptoms occur, call the physician at once. The pain medication that I sent in for you is a combination of hydrocodone and ibuprofen. Please take 1 tablet every 6 hours. You may also take 400 mg of ibuprofen with this. Keep the follow-up appointment you have with your primary care provider. Prescriptions: Ibuprofen [Motrin 600 mg Tablet] 600 mg PO Q6HP PRN #20 tablet PRN Reason: Hydrocodone/Ibuprofen [Hydrocodone-Ibuprofen 7.5-200] 1 each PO Q6H #10 tablet Referrals: RHEA COLE PAD ASSEMBLER [Primary Care Provider] - Follow up as needed
== END 2020-03-22 16:06 | disposition home or self-care (01) ==
LOC: ER 12:35
DX: R09.1 Pleurisy (principal); R07.81 Pleurodynia; F17.200 Nicotine dependence, unspecified, uncomplicated; I10 Essential (primary) hypertension; J44.9 Chronic obstructive pulmonary disease, unspecified
CPT/HCPCS: 71250; 99284

== ENCOUNTER 2020-03-26 07:37 | Day surgery (SDC) | payer MEDICAID ==
[2020-03-26] MEDS ORDERED: PROPOFOL INJ 200 MG/20 ML VIAL IV ONE (07:39)
[2020-03-26 08:57] VITALS: BP 135/73
--- NOTE | 2020-03-26 09:57 | Operative Report ---
Operative Report DATE OF SURGERY: 03/26/20 Operative Report: The risk, benefits and alternatives of the procedure including the risk of bleeding, perforation requiring surgery have been explained to the patient in detail and informed consent has been obtained. Patient is placed in the left, lateral decubital position. Timeout was called. Propofol medication is administered. Rectal examination is done which did not reveal any masses, tears or fissures. An Olympus videoscope was introduced into the patient's rectum. The scope was then carefully advanced all the way to the cecum. The cecum was identified by the usual anatomical landmarks including the ileocecal valve as well as the appendiceal office. Photodocumentation is obtained. Scope was then sequentially pulled back via the various segments of the colon including the ascending colon, hepatic flexure, transverse colon, splenic flexure, descending colon finally into the rectosigmoid portions of the colon. Retroflexion maneuvers performed. The risks benefits and alternatives of the procedure explained to the patient in detail and informed consent is obtained.A GIF Olympus video scope was inserted into the patient's mouth and hypopharynx, the esophagus is identified intubated and insufflated ,the scope was then advanced through the esophagus stomach and duodenum ,retroflexion maneuver is done ,the esophagus stomach and first and second portions of the duodenum examined PREOPERATIVE DIAGNOSIS: Change in bowel habits. Mild dysphagia POSTOPERATIVE DIAGNOSIS: Right colon inflammation status post biopsy. Internal hemorrhoids. Gastritis status post biopsy. Esophagitis/Schatzki's ring status post biopsy OPERATION: Colonoscopy with biopsy. EGD with biopsy SURGEON: HYUN GRANT ANESTHESIA: LMAC TISSUE REMOVED OR ALTERED: As noted above. COMPLICATIONS: None. ESTIMATED BLOOD LOSS: None. INTRAOPERATIVE FINDINGS: As noted above. PROCEDURE: Patient tolerated the procedure well. No immediate postprocedure complications are noted. Patient is discharged in good condition. Discharge date 03/26/2020. Discharge diet: Regular. Discharge activity: Regular. 2 to 3-week follow-up to discuss findings. Patient is instructed to call the office or proceed to the emergency room Should there be any further problems or questions. Wait on the pathology.
--- OUTSIDE RECORDS SUMMARY | 2020-03-27 17:57 | XMS REPORT ---
:1955 [facility] [address] [place] [address] Care Team Providers Name Role Phone Liat Castrejon Primary Care Physician Unavailable Liat Castrejon Attending Clinician Unavailable Santos Ruiz Attending Clinician Unavailable Shmuel Coats Attending Clinician Unavailable Allergies, Adverse Reactions, Alerts This patient has no known allergies or adverse reactions. Medications Ordered Filled Start Stop Current Ordering Indication Dosage Frequency Signature Comments Components Medication Medication Date Date Medication? Clinician (SIG) Name Name ZyrTEC 2020-0 Yes 0 ZyrTEC Allergy 10 8-25 Allergy 10 MG Oral 00:00: MG Oral Tablet 00 Tablet TAKE 1 TABLET BY MOUTH EVERY DAY Refills: 0 ,,, Start : 0Active Fluticasone 2020-0 Yes 0 Fluticason Propionate 8-25 e 50 MCG/ACT 00:00: Propionate Nasal 00 50 MCG/ACT Suspension Nasal Suspension INSTILL TWO SPRAYS EACH NOSTRIL EVERY DAY Quantity: 16 Refills: 0 ,,, Start : 0Active Adderall 30 2020-0 Yes 0 Q0.5D Adderall MG Oral 8-25 30 MG Oral Tablet 00:00: Tablet 00 TAKE 1 TABLET TWICE DAILY. Refills: 0 ,,, Start : 0Active Xanax 0.5 2020-0 Yes 0 Q0.3333D Xanax 0.5 MG Oral 8-25 MG Oral Tablet 00:00: Tablet 00 TAKE 1 TABLET 3 TIMES DAILY. Refills: 0 ,,, Start : 0Active Lisinopril- 2020-0 Yes 0 QD Lisinopril hydroCHLORO 8-25 -hydroCHLO thiazide 00:00: ROthiazide 20-25 MG 00 20-25 MG Oral Tablet Oral Tablet TAKE 1 TABLET ONCE DAILY. Refills: 0 ,,, Start : 0Active amLODIPine 2020-0 Yes 0 amLODIPine Besylate 5 8-25 Besylate 5 MG Oral 00:00: MG Oral Tablet 00 Tablet Take 1 tablet by mouth daily Quantity: 90 Refills: 0 ,,, Start : 0Active Nicotine 21 2020-0 Yes 0 Nicotine MG/24HR 8-19 21 MG/24HR Transdermal 00:00: Transderma Patch 24 00 l Patch 24 Hour Hour APPLY ONE PATCH QD Quantity: 28 Refills: 0 ,,, Start : 0Active Stiolto 2020-0 Yes 0 Stiolto Respimat 8-19 Respimat 2.5-2.5 00:00: 2.5-2.5 MCG/ACT 00 MCG/ACT Inhalation Inhalation Aerosol Aerosol Solution Solution INHALE 2 PUFFS PO ONCE D Quantity: 12 Refills: 0 ,,, Start : 0Active Albuterol 2019-0 Yes 0 Albuterol Sulfate HFA 8-19 Sulfate 108 (90 00:00: HFA 108 Base) 00 (90 Base) MCG/ACT MCG/ACT Inhalation Inhalation Aerosol Aerosol Solution Solution INHALE 2 PUFFS PO Q 4 HOURS PRN Quantity: 26 Refills: 0 ,,, Start : 0Active Ibuprofen 2019-0 Yes 0 Ibuprofen 600 MG Oral 4- 600 MG Tablet 00:00: Oral 00 Tablet Quantity: 60 Refills: 0 ,,, Start : 15-Aug-2019 Active Mobic 7.5 No 1 Q1D Mobic 7.5 mg tablet mg tablet Take 1 Take 1 tablet tablet every day every day by oral by oral route for route for 30 days. 30 days. 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 00 Hypertensiv Hypertensiv Problem Active 2018-05 e disorder e Disorder 06-24 00:00: 00 Chronic Chronic Problem Active 2018-05 obstructive Obstructive 06-24 lung Lung 00:00: disease Disease 00 Pain in Pain in Problem Active 2019-1 elbow Elbow 06-24 00:00: 00 Lateral Lateral Problem Active 2018- epicondylit Epicondylit 2 is of right is of Right 00:00: humerus Humerus 00 ADD ADD Problem Active (attention (attention deficit deficit disorder) disorder) Osteoarthri Osteoarthri Problem Active tis tis GERD GERD Problem Active without without esophagitis esophagitis Easy Easy Problem Active bruising bruising Atypical Atypical Problem Active rash rash Encounter Encounter Problem Active for for immunizatio immunizatio n n Generalized Generalized Problem Active joint pain joint pain Osteopenia Osteopenia Problem Active of multiple of multiple sites sites Anxiety and Anxiety and Problem Active depression depression Nicotine Nicotine Problem Active addiction addiction Procedures Procedure Date / Time Performed Performing Clinician Devic e CBC 2020-01-08 00:00:00 CMP(Complete Metabolic Panel) 2020-01-08 00:00:00 CRP 2020-01-08 00:00:00 Free T4 2020-01-08 00:00:00 L - CCP Antibodies IgG/IgA 2020-01-08 00:00:00 L - Chlamydia/GC Amplification 2020-01-08 00:00:00 L - Doctor Wendys Hepatitis Panel 2020-01-08 00:00:00 (HP4+HBsAb) L - HLA B 27 Disease Association 2020-01-08 00:00:00 L - QuantiFERON Client Incubated 2020-01-08 00:00:00 Rheumatoid Factor 2020-01-08 00:00:00 Sed Rate 2020-01-08 00:00:00 TSH 2020-01-08 00:00:00 Uric Acid 2020-01-08 00:00:00 Urinalysis 2020-01-08 00:00:00 Iron & TIBC Panel 2020-01-08 00:00:00 Ferritin 2020-01-08 00:00:00 Vitamin D Total 2020-01-08 00:00:00 L - Protein Elec + Interp, Serum 2020-01-08 00:00:00 L - WINSTON w/Reflex if Positive 2020-01-08 00:00:00 L - ANCA Panel 2020-01-08 00:00:00 OFFICE/OUTPATIENT VISIT EST 2019-11-09 09:45:00 DSCHRG MED/CURRENT MED MERGE 2019-09-28 08:30:00 OFFICE/OUTPATIENT VISIT EST 2019-09-28 08:30:00 DSCHRG MED/CURRENT MED MERGE 2019-07-09 15:00:00 OFFICE/OUTPATIENT VISIT EST 2019-07-09 15:00:00 OFFICE/OUTPATIENT VISIT EST 2019-06-19 15:15:00 DSCHRG MED/CURRENT MED MERGE 2019-05-28 10:15:00 OFFICE/OUTPATIENT VISIT EST 2019-05-28 10:15:00 OFFICE/OUTPATIENT VISIT EST 2019-05-18 09:30:00 RADIOLOGIC EXAM ELBOW 3 VIEWS 2019-04-23 00:00:00 OFFICE/OUTPATIENT VISIT EST 2019-04-20 10:00:00 OFFICE/OUTPATIENT VISIT EST 2019-03-22 14:15:00 OFFICE/OUTPATIENT VISIT NEW 2019-01-30 14:00:00 OFFICE/OUTPATIENT VISIT EST 2018-05-02 13:00:00 OFFICE/OUTPATIENT VISIT EST 2017-11-10 16:15:00 OFFICE/OUTPATIENT VISIT EST 2017-07-11 11:15:00 OFFICE/OUTPATIENT VISIT NEW 2017-04-21 09:30:00 History of Cataract surgery History of Tubal ligation History of Foot surgery Foot Surgery Results Test Description Test Time Test Comments Text Results Atomic Results Result Comments [facility] 2019 CORONAVIRUS BENITO PANEL\S\ 2020-03-21 14:55:00 Test Item Value Reference Range Comments [facility] 2019 NOVEL CORONAVIRUS BENITO (test code = [id number]) N ot Detected Not Detect [facility] CORONAVIRUS 2019 BENITO SOURC (test code = SOURCE3) See comment COMPREHENSIVE METABOLIC PANEL\S\2020-03-18 16:54:00 Test Item Value Reference Range Comments CALCIUM (test code = CA) 10.4 mg/dL 8.4-10.2 BILIRUBIN,TOTAL (test code = TBIL) 0.5 mg/dL 0.2-1.3 CARBON DIOXIDE (test code = CO2) 23 mmol/L 22-30 GLUCOSE (test code = GLU) 56 mg/dL 75-110 CHLORIDE (test code = CL-1) 103 mmol/L 98-107 SODIUM (test code = NA) 137.1 mmol/L 137-145 CREATININE RESULT (test code = CREA) 0.66 mg/dL 0.52-1.25 ASPARTATE AMINO TRANSFERASE (test code = AST) 28 U/L 14 -36 EGFR, (test code = GFRAA) > 60 >60 POTASSIUM (test code = K) 4.7 mmol/L 3.6-5.0 BLOOD UREA NITROGEN (test code = BUN) 11 mg/dL 7-20 EGFR,NON (test code = GFRN) > 60 >60 ALBUMIN (test code = ALB) 4.6 g/dL 3.5-5.0 TOTAL PROTEIN (test code = TP) 6.9 g/dL 6.3-8.2 ALKALINE PHOSPHATASE (test code = ALKP) 93 U/L 38-126 ANION GAP (test code = ANION) 11 5-19 ALANINE AMINOTRANSFERASE (test code = ALTV) 24 U/L <35 BILIRUBIN,DIRECT (test code = BC) 0.1 mg/dL 0.0-0.4 CBC WITH DIFF\S\2020-03-18 16:54:00 Test Item Value Reference Range Comments MEAN CORPUSCULAR VOLUME (test code = MCV) 97 fl 80-97 WHITE BLOOD COUNT (test code = WBC) 5.7 10 3/uL 4.0-10.5 RED CELL DISTRIBUTION WIDTH (test code = RDW) 12.8 % 11 .5-14.0 LYMPHOCYTES % (AUTO) (test code = LY%) 32.2 % 13-45 ABSOLUTE EOSINOPHILS # (AUTO) (test code = EO#) 0.4 10 3/uL 0.0-0.6 PLATELET COUNT (test code = PLT) 319 10 3/uL 150-450 ABSOLUTE LYMPHOCYTES (AUTO) (test code = LY#) 1.8 10 3/uL 0. 5-4.7 MEAN CORPUSCULAR HEMOGLOBIN (test code = MCH) 34.8 pg 27 .0-33.4 ABSOLUTE NEUT (AUTO) (test code = NE#) 2.9 10 3/uL 1.7-8.2 EOSINOPHILS % (AUTO) (test code = EO%) 7.7 % 0-6 ABSOLUTE MONOCYTES (AUTO) (test code = MO#) 0.5 10 3/uL 0.1- 1.4 RED BLOOD COUNT (test code = RBC) 3.82 10 6/uL 3.72-5.28 MONOCYTES % (AUTO) (test code = MO%) 8.8 % 3-13 HEMATOCRIT (test code = HCT) 37.1 % 36.0-47.0 HEMOGLOBIN (test code = HGB) 13.3 g/dL 12.0-15.5 ABSOLUTE BASOPHILS # (AUTO) (test code = BA#) 0.1 10 3/uL 0. 0-0.2 SEGMENTED NEUTROPHILS % (AUTO) (test code = 49.9 % 42-7 8 SEG%) BASOPHILS % (AUTO) (test code = BA%) 1.4 % 0-2 MEAN CORPUSCULAR HGB CONC (test code = MCHC) 35.7 g/dL 32. 0-36.0 SARS-CoV-2, BENITO\S\2020-03-08 10:40:00 Test Item Value Reference Range Comments SARS-CoV-2, BENITO (test code = 37165-1) Not Detected Not Detect ed VITAMIN B12/FOLATE, SERUM [id number] 04:22:00 Test Item Value Reference Range Comments VITAMIN B12 (test code = 431 pg/mL 200-1100 2132-9) FOLATE, SERUM (test code = 7.6 ng/mL >=5.5 Refer ence RangeLow: 2284-8) <3.4Borderline: 3.4-5.4Normal: >5.4 VITAMIN B12/FOLATE, SERUM [id number] 00:00:00 Test Item Value Reference Range Comments FOLATE, SERUM (test code = 93175147) 7.6 ng/mL VITAMIN B12 (test code = 76726813) 431 pg/mL 200-1100 [id number] 14:43:00 Test Item Value Reference Range Comments Urine Color (test code = Urine Color) LT. YELLOW Yellow Urine Clarity (test code = Urine Clarity) CLEAR Clear Urine Glucose (test code = Urine Glucose) NEGATIVE Negati ve Urine Ketones (test code = Urine Ketones) NEGATIVE Negati ve Urine Bilirubin (test code = Urine Bilirubin) NEGATIVE Ne gative Urine Specific [place] (test code = Urine 1.010 1.010- 1.030 Specific [place]) Urine Blood (test code = Urine Blood) NEGATIVE Negative Urine pH (test code = Urine pH) 6.5 5.0-8.0 Urine Protein (test code = Urine Protein) NEGATIVE Negati ve Urine Urobilinogen (test code = Urine 0.2 Eu/dl 0.2 Urobilinogen) Urine Nitrites (test code = Urine Nitrites) NEGATIVE Nega tive Urine Leukocytes (test code = Urine Leukocytes) NEGATIVE Negative [id number] 14:43:00 Test Item Value Reference Range Comments White Blood Cell (test code = White Blood Cell) 5.0 K/uL 3.5-11.1 Red Blood Cell (test code = Red Blood Cell) 4.02 {M/uL} 3.69 -4.87 Hemoglobin (test code = Hemoglobin) 13.7 g/dL 11.4-14.4 Hematocrit (test code = Hematocrit) 39 % 33-41 Mean Corpuscular Volume (test code = Mean 97.5 fL 79.0-9 5.0 Corpuscular Volume) Mean Corpuscular Hemoglobin (test code = Mean 34.1 pg/mL 27 .0-33.0 Corpuscular Hemoglobin) Mean Corpuscular Hemoglobin Concentration (test 34.9 g/dL 33.5-35.5 code = Mean Corpuscular Hemoglobin Concentration) Red Cell Distribution Width (test code = Red 12.2 % 12. 0-15.0 Cell Distribution Width) Platelet (test code = Platelet) 258 K/uL 130-353 Mean Platelet Volume (test code = Mean Platelet 8.4 fL 7.5-10.7 Volume) Neutrophil Count, absolute (test code = 2.7 K/uL 1.9-7.2 Neutrophil Count, absolute) Neutrophil Count Percentage (test code = 54.0 % 43.0-72 .0 Neutrophil Count Percentage) Lymphocyte Count, absolute (test code = 1.7 K/uL 1.1-2.7 Lymphocyte Count, absolute) Lymphocyte Count Percentage (test code = 33.6 % 17.0-44 .0 Lymphocyte Count Percentage) Monocyte Count, absolute (test code = Monocyte 0.4 K/uL 0 .3-0.8 Count, absolute) Monocyte Count Percentage (test code = Monocyte 7.6 % 4.5-12.4 Count Percentage) Eosinophil Count, absolute (test code = 0.2 K/uL 0.0-0.5 Eosinophil Count, absolute) Eosinophil Count Percentage (test code = 3.2 % 0.7-7.8 Eosinophil Count Percentage) Basophil Count, absolute (test code = Basophil 0.1 K/uL 0 .0-0.1 Count, absolute) Basophil Count Percentage (test code = Basophil 1.4 % 0.2-1.1 Count Percentage) Nucleated Red Blood Cell, absolute (test code = 0.00 K/uL 0.00-0.00 Nucleated Red Blood Cell, absolute) Nucleated Red Blood Cell, percentage (test code 0.00 % 0.00-0.00 = Nucleated Red Blood Cell, percentage) Sed [id number] 14:43:00 Test Item Value Reference Range Comments Erythrocyte Sedimentation Rate (test code = 5 {mm/hr} 0-30 Erythrocyte Sedimentation Rate) [id number] 14:43:00 Test Item Value Reference Range Comments C-Reactive Protein (test code = C-Reactive Protein) <5 <10 Less than linearityRheumatoid [id number] 14:43:00 Test Item Value Reference Range Comments Rheumatoid Factor (test code = Rheumatoid Factor) <9 <11 Less than linearityUric [id number] 14:43:00 Test Item Value Reference Range Comments Uric Acid (test code = Uric Acid) 2.8 mg/dL 2.5-6.2 Iron & TIBC [id number] 14:43:00 Test Item Value Reference Range Comments Iron (test code = Iron) 95 ug/dL 37-170 Total Iron Binding Capacity (test code = Total 272 ug/dL 2 65-497 Iron Binding Capacity) Iron % Saturation (test code = Iron % Saturation) 35 % 9-55 CMP(Complete Metabolic Panel)2020-01-08 14:43:00 Test Item Value Reference Range Comments Glucose (test code = Glucose) 90 mg/dL 74-106 Sodium (test code = Sodium) 133 mmol/L 135-145 Potassium (test code = Potassium) 3.9 mmol/L 3.5-5.3 Chloride (test code = Chloride) 96 mmol/L 98-107 CO2 (test code = CO2) 30 mmol/L 22-30 Creatinine, serum (test code = Creatinine, serum) 0.60 mg/dL 0.10-1.04 Glomerular Filtration Rate (test code = >60 >60 Glomerular Filtration Rate) Glomerular Filtration Rate AA (test code = >60 >60 Glomerular Filtration Rate AA) Blood Urea Nitrogen (test code = Blood Urea 6 mg/dL 7-17 Nitrogen) Calcium (test code = Calcium) 10.2 mg/dL 8.4-10.5 Phosphorus (test code = Phosphorus) 3.3 mg/dL 2.5-4.5 Total Protein (test code = Total Protein) 7.4 g/dL 6.3-8. 2 Albumin (test code = 85191-6) 4.7 g/dL 3.5-5.0 Total Bilirubin (test code = Total Bilirubin) 1.0 mg/dL 0. 2-1.3 Bilirubin, unconj (test code = Bilirubin, unconj) 0.8 mg/dL 0.0-1.1 Bilirubin, Direct (test code = Bilirubin, Direct) 0.2 mg/dL 0.0-0.4 Alkaline Phosphatase (test code = Alkaline 108 U/L 20-15 0 Phosphatase) Alanine Transaminase (test code = Alanine 30 U/L 0-35 Transaminase) Aspartate Aminotransferase (test code = Aspartate 41 U/L 3-36 Aminotransferase) Repeated: NA, CL, BUN, ASTFree [id number] 14:43:00 Test Item Value Reference Range Comments Free T4 (test code = Free T4) 1.08 ng/dL 0.78-2.19 Thyroid Stimulating [id number] 14:43:00 Test Item Value Reference Range Comments Thyroid Stimulating Hormone (test code = 0.71 {mIU/mL} 0.46-4. 68 Thyroid Stimulating Hormone) [id number] 14:43:00 Test Item Value Reference Range Comments Ferritin (test code = Ferritin) 134.0 ng/mL 11.1-264.0 Vitamin D [id number] 14:43:00 Test Item Value Reference Range Comments Vitamin D, total (test code = Vitamin D, total) 42 ng/mL 30-100 L - WINSTON w/Reflex if [id number] 14:43:00 Test Item Value Reference Range Comments WINSTON Direct (test code = 8061-4) Negative Negative [facility] performed at: [] [address], [address], , Section Cutter: Ijeoma Tom MDL - ANCA [id number] 14:43:00 Test Item Value Reference Range Comments Antimyeloperoxidase (MPO) Abs <9.0 0.0-9.0 (test code = 46759-2) Antiproteinase 3 (NC-3) Abs <3.5 0.0-3.5 (test code = 08258-1) Cytoplasmic (C-ANCA) (test code <1:20 Neg:<1:20 = 67182-1) Perinuclear (P-ANCA) (test code <1:20 Neg:<1:20 The presence of positive = 99986-2) fluorescence exh ibiting P-ANCA orC-ANCA pattern s alone is not specific for the diagnosis ofWegener's Gran ulomatosis (WG) or microscopic polyangiitis.Dec isions about treatment should not be based solely onANCA IF A results. The International AN CA Group Consensusrecomme nds follow up testing of posit sanjiv sera with both NC-3 and MP O-ANCA enzyme immunoassays. As many as 5% serumsamples are positive only by EIA. Ref. AM J Clin Jsopqi9923;111:5 07-513. Atypical pANCA (test code = <1:20 Neg:<1:20 [place] [address]-9) been observed in asignificant percentage of pa tients with ulcerative colit is,primary sclerosing chola ngitis and autoimmune hepat itis. [facility] performed at: [] [facility], [address], , Section Cutter: Ijeoma Tom MDL - CCP Antibodies [id number] 14:43:00 Test Item Value Reference Range Comments CCP Antibodies IgG/IgA (test 4 {Units} 0-19 code = 71933-8) Nega tive <20 Weak positive 20 - 39 Moderate pos itive 40 - 59 St blanca positive >59 [facility] performed at: [] [facility], [address], , Section Cutter: Ijeoma Tom MDL - Chlamydia/GC [id number] 14:43:00 Test Item Value Reference Range Comments Chlamydia trachomatis, BENITO (test code = 88348-3) Negative Negative Neisseria gonorrhoeae, BENITO (test code = 99865-0) Negative Negative [facility] performed at: [] [facility], [address], , Section Cutter: Nolvia Ruiz A Ab, [id number] 14:43:00 Test Item Value Reference Range Comments Hep A Ab, IgM (test code Negative Negative = 51091-1) HBsAg Screen (test code = Negative Negative 5196-1) Hep B Core Ab, IgM (test Negative Negative code = 11222-2) Hep B Surface Ab, Qual Reactive (test code = 72433-0) Non React sanjiv: Inconsistent with immunity, less than 10 mI U/mL Reactive: Co nsistent with immunity, greater than 9. 9 mIU/mL HCV Ab; Above High 4.9 {s/co ratio} 0.0-0.9 Threshold (test code = 29781-3) HCV Antibody Reactive Non Reactive Verification; Abnormal (test code = 32924-7) [facility] performed at: [] [address], [address], , Section Cutter: Ijeoma Tom [facility] [id number] 14:43:00 Test Item Value Reference Range Comments QuantiFERON Criteria (test Comment The Q uantiFERON-TB Gold Plus code = QuantiFERON result is det ermined Criteria) bysubtracting th e Nil value from either TB a ntigen (Ag) tube.The mitogen tube serves as a control for the test. QuantiFERON TB1 Ag Value 0.03 {IU/mL} (test code = QuantiFERON TB1 Ag Value) QuantiFERON TB2 Ag Value 0.01 {IU/mL} (test code = QuantiFERON TB2 Ag Value) QuantiFERON Nil Value (test 0.01 {IU/mL} code = QuantiFERON Nil Value) QuantiFERON Mitogen Value >10.00 (test code = QuantiFERON Mitogen Value) QuantiFERON-TB Gold Plus Negative Negative The spe cimen received for (test code = QuantiFERON-TB Yohan tiFERON testing was Gold Plus) incubatedby the ordering institution. Sp ecific procedures outli ever our Directory of Ser vices and in the package inse rt forthe QuantiFERON Gold (In Tube) test must be fol lowed toenable for pro per stimulation of c ells for the productionof int erferon gamma. [facility] performed at: [BN] [address], [address], , Section Cutter: ELI Ruizrotein, Total, [id number] 14:43:00 Test Item Value Reference Range Comments Protein, Total, Serum 7.1 g/dL 6.0-8.5 (test code = 2885-2) Albumin; Above High 4.6 g/dL 2.9-4.4 Threshold (test code = 2862-1) Mcela-1-Abpwhwoh (test 0.2 g/dL 0.0-0.4 code = 2865-4) Dbgey-0-Hparisgs (test 0.7 g/dL 0.4-1.0 code = 2868-8) Beta Globulin (test code 0.9 g/dL 0.7-1.3 = 2871-2) Gamma Globulin (test code 0.7 g/dL 0.4-1.8 = 2874-6) M- (test code = Not Observed Not Observed 76491-1) Globulin, Total (test 2.5 g/dL 2.2-3.9 code = 46150-9) A/G Ratio; Above High 1.8 0.7-1.7 Threshold (test code = 1759-0) Please note: (test code = Comment Protei n electrophoresis scan Please note:) will follow via computer,mail, or luggage liner scott su. P E Interpretation, S Comment The SPE pa ttern appears (test code = 77823-2) unremarkab le. Evidence ofmonoclonal pro tein is not apparent. PDF (test code = PDF) . [facility] performed at: [BN] [address], [address], , Section Cutter: Ijeoma Tom MDL - HLA B 27 Disease [id number] 14:43:00 Test Item Value Reference Range Comments HLA-B27 (test code = Negative HLA-B*27 Ne ltnrgrM23 allele 01599-7) interpretation f or all loci based on IMGT/HLAdatabase version 3.38This test was developed an d its performance characteristicsd etermined by [facility]. It has not been cleared or approvedby the Food and Chuy g Administration.[facility] CLIA ID Number [id number] test was performed using PCR (Polymerase ChainReaction)/S SOP (Sequence Specific Oligonucleotide Probes)technique. SBT (Sequence Based Typing) and/or SSP(Sequence Spe cific Primers) may be used as suppleme ntalmethods when necessary. Celine red contact HLA CustomerService at if you have any questio ns. Director of HLA Laboratory Dr Bryan Irwin, PhD [facility] performed at: [2Q] [facility], [address] [place] [address], [address], , Section Cutter: Robbin Irwin, PhDCULTURE, AEROBIC BACTERIA WITH GRAM [id number] 13:35:00SEE NOTESEE NOTECULTURE, AEROBIC BACTERIA WITH GRAM [id number] 11:03:00SEE NOTESEE NOTEPROTHROMBIN [id number] 14:35:00 Test Item Value Reference Range Comments INR (test code = 6301-6) 1.0 PT (test code = 37571765) 10.2 sec 9.0-11.5 CBC (H/H, RBC, INDICES, WBC, PLT)2019-09-28 14:35:00 Test Item Value Reference Range Comments RDW (test code = 76858023) 12.6 % 11.0-15.0 PLATELET COUNT (test code = 23173330) 300 Thousand/uL 140-400 HEMOGLOBIN (test code = 42833151) 14.3 g/dL 11.7-15.5 MPV (test code = 73192806) 8.9 fL 7.5-12.5 MCH (test code = 63011265) 33.5 pg 27.0-33.0 RED BLOOD CELL COUNT (test code = 79173760) 4.27 Million/uL 3.80 -5.10 MCV (test code = 88741442) 97.4 fL 80.0-100.0 HEMATOCRIT (test code = 75751000) 41.6 % 35.0-45.0 MCHC (test code = 37859924) 34.4 g/dL 32.0-36.0 WHITE BLOOD CELL COUNT (test code = 4.9 Thousand/uL 3.8-10.8 77469288) PARTIAL THROMBOPLASTIN TIME, [id number] 14:35:0031CREATINE KINASE MB\S\[id number] 16:45:00 Test Item Value Reference Range Comments CREATINE KINASE MB (test code = CKMB) 3.67 ng/mL <4.55 TROPONIN I\S\[id number] 16:45:00 Test Item Value Reference Range Comments TROPONIN I (test code = TROPI) < 0.012 ng/mL LYME AB WESTERN BLT RFLX\S\[id number] 16:45:00 Test Item Value Reference Range Comments LYME DISEASE IGM AB (test code = LYMEMABT) <0.80 index 0.00- 0.79 [id number] 16:42:00SINUS RHYTHMConfirmed by: Michelle Jaramillo MD 19-Jun-2019 22:00:13LEFT ATRIAL ABNORMALITYMRN: [id number]:PATIENT NAME: NAMRATA TURK IAccession Number: [id number] ABNORMAL ECG -BORDERL INE INFERIOR Q WAVESAGE: 64 RACE: [place] Gender: FBORDERLINE T ABNORMALITIES, ANT-LAT LEADSODORDERING PHYSICIAN: LIAT [facility] WITH [facility]FF\S\[id number] 10:23:00 Test Item Value Reference Range Comments ABSOLUTE EOSINOPHILS # (AUTO) (test code = EO#) 0.0 10 3/uL 0.0-0.6 MONOCYTES % (AUTO) (test code = MO%) 10.2 % 3-13 HEMATOCRIT (test code = HCT) 43.9 % 36.0-47.0 HEMOGLOBIN (test code = HGB) 15.3 g/dL 12.0-15.5 RED BLOOD COUNT (test code = RBC) 4.45 10 6/uL 3.72-5.28 LYMPHOCYTES % (AUTO) (test code = LY%) 17.6 % 13-45 EOSINOPHILS % (AUTO) (test code = EO%) 0.4 % 0-6 ABSOLUTE NEUT (AUTO) (test code = NE#) 3.1 10 3/uL 1.7-8.2 RED CELL DISTRIBUTION WIDTH (test code = RDW) 12.8 % 11 .5-14.0 ABSOLUTE LYMPHOCYTES (AUTO) (test code = LY#) 0.8 10 3/uL 0. 5-4.7 MEAN CORPUSCULAR HGB CONC (test code = MCHC) 34.9 g/dL 32. 0-36.0 SEGMENTED NEUTROPHILS % (AUTO) (test code = 71.2 % 42-7 8 SEG%) BASOPHILS % (AUTO) (test code = BA%) 0.6 % 0-2 PLATELET COUNT (test code = PLT) 150 10 3/uL 150-450 ABSOLUTE MONOCYTES (AUTO) (test code = MO#) 0.5 10 3/uL 0.1- 1.4 MEAN CORPUSCULAR VOLUME (test code = MCV) 99 fl 80-97 MEAN CORPUSCULAR HEMOGLOBIN (test code = MCH) 34.5 pg 27 .0-33.4 ABSOLUTE BASOPHILS # (AUTO) (test code = BA#) 0.0 10 3/uL 0. 0-0.2 WHITE BLOOD COUNT (test code = WBC) 4.4 10 3/uL 4.0-10.5 ERYTHROCYTE SEDIMENTATION RATE\S\[id number] 10:23:00 Test Item Value Reference Range Comments ERYTHROCYTE SEDIMENTATION RATE (test code = ESR) 8 mm/hr 0-30 C-REACTIVE PROTEIN\S\[id number] 10:23:00 Test Item Value Reference Range Comments C-REACTIVE PROTEIN (test code = CRPR) 14.9 mg/L <10.0 CREATINE KINASE\[id number] 10:23:00 Test Item Value Reference Range Comments CREATINE KINASE (test code = CK) 95 U/L 30-135 RHEUMATOID FACTOR\S\[id number] 10:23:00 Test Item Value Reference Range Comments RHEUMATOID FACTOR (test code = RA) NEGATIVE NEGATIVE COMPREHENSIVE METABOLIC PANEL\[id number] 10:23:00 Test Item Value Reference Range Comments ASPARTATE AMINO TRANSFERASE (test code = AST) 65 U/L 14 -36 EGFR,NON (test code = GFRN) > 60 >60 BILIRUBIN,TOTAL (test code = TBIL) 0.3 mg/dL 0.2-1.3 ALANINE AMINOTRANSFERASE (test code = ALTV) 38 U/L <35 TOTAL PROTEIN (test code = TP) 7.4 g/dL 6.3-8.2 CALCIUM (test code = CA) 9.6 mg/dL 8.4-10.2 BLOOD UREA NITROGEN (test code = BUN) 7 mg/dL 7-20 ALKALINE PHOSPHATASE (test code = ALKP) 109 U/L 38-126 EGFR, (test code = GFRAA) > 60 >60 ANION GAP (test code = ANION) 10 5-19 CREATININE RESULT (test code = CREA) 0.63 mg/dL 0.52-1.25 CARBON DIOXIDE (test code = CO2) 28 mmol/L 22-30 CHLORIDE (test code = CL-1) 92 mmol/L 98-107 SODIUM (test code = NA) 130.4 mmol/L 137-145 POTASSIUM (test code = K) 5.1 mmol/L 3.6-5.0 ALBUMIN (test code = ALB) 4.4 g/dL 3.5-5.0 GLUCOSE (test code = GLU) 89 mg/dL 75-110 BILIRUBIN,DIRECT (test code = BC) 0.2 mg/dL 0.0-0.4 COMPLEMENT C4\S\[id number] 10:23:00 Test Item Value Reference Range Comments COMPLEMENT C4 (test code = C4) 27 mg/dL 14-44 CBC (H/H, RBC, INDICES, WBC, PLT)2019-04-20 10:55:00 Test Item Value Reference Range Comments MPV (test code = 39626496) 8.6 fL 7.5-12.5 RED BLOOD CELL COUNT (test code = 99477411) 4.19 Million/uL 3.80 -5.10 MCHC (test code = 91610276) 34.8 g/dL 32.0-36.0 MCV (test code = 56446732) 99.5 fL 80.0-100.0 RDW (test code = 55328954) 11.9 % 11.0-15.0 WHITE BLOOD CELL COUNT (test code = 4.7 Thousand/uL 3.8-10.8 23335852) HEMATOCRIT (test code = 99131628) 41.7 % 35.0-45.0 HEMOGLOBIN (test code = 79142229) 14.5 g/dL 11.7-15.5 PLATELET COUNT (test code = 72491115) 365 Thousand/uL 140-400 MCH (test code = 31061783) 34.6 pg 27.0-33.0 COMPREHENSIVE METABOLIC [id number] 10:55:00 Test Item Value Reference Range Comments eGFR NON-AFR. SOMALI (test code = 91 mL/min/1.73m2 > OR = 60 85972473) POTASSIUM (test code = 31983330) 4.3 mmol/L 3.5-5.3 CHLORIDE (test code = 98967966) 96 mmol/L 98-110 ALBUMIN (test code = 57569023) 4.6 g/dL 3.6-5.1 CALCIUM (test code = 59371407) 10.0 mg/dL 8.6-10.4 CARBON DIOXIDE (test code = 61939682) 26 mmol/L 20-32 BUN/CREATININE RATIO (test code = NOT APPLICABLE (calc) 6-22 94490113) GLUCOSE (test code = 42972873) 82 mg/dL 65-99 GLOBULIN (test code = 97025355) 2.2 g/dL (calc) 1.9-3.7 PROTEIN, TOTAL (test code = 77267924) 6.8 g/dL 6.1-8.1 BILIRUBIN, TOTAL (test code = 0.7 mg/dL 0.2-1.2 11747064) CREATININE (test code = 15328325) 0.71 mg/dL 0.50-0.99 SODIUM (test code = 84073406) 131 mmol/L 135-146 ALT (test code = 10183802) 20 U/L 6-29 ALBUMIN/GLOBULIN RATIO (test code = 2.1 (calc) 1.0-2.5 46159721) UREA NITROGEN (BUN) (test code = 7 mg/dL 7-25 40551222) AST (test code = 54008076) 25 U/L 10-35 eGFR (test code = 106 mL/min/1.73m2 > OR = 60 24143904) ALKALINE PHOSPHATASE (test code = 99 U/L 33-130 48542727) LIPID PANEL, [id number] 10:55:00 Test Item Value Reference Range Comments CHOLESTEROL, TOTAL (test code = 91015648) 199 mg/dL <200 HDL CHOLESTEROL (test code = 65888333) 104 mg/dL >50 LDL-CHOLESTEROL (test code = 42522801) 81 mg/dL (calc) CHOL/HDLC RATIO (test code = 18540666) 1.9 (calc) <5.0 TRIGLYCERIDES (test code = 95804954) 62 mg/dL <150 NON HDL CHOLESTEROL (test code = 93208449) 95 mg/dL (calc) <130 HEPATITIS C AB W/REFL TO HCV RNA, QN, [id number] 10:55:00 Test Item Value Reference Range Comments HEPATITIS C ANTIBODY (test code = 57880046) REACTIVE NON- REACTIVE SIGNAL TO CUT-OFF (test code = 95054980) 5.18 <1.00 [id number] 10:55:001.00HEPATIC FUNCTION [id number] 10:55:00 Test Item Value Reference Range Comments ALBUMIN (test code = 19851427) 4.6 g/dL 3.6-5.1 ALT (test code = 76866776) 20 U/L 6-29 PROTEIN, TOTAL (test code = 06888417) 6.8 g/dL 6.1-8.1 ALBUMIN/GLOBULIN RATIO (test code = 2.1 (calc) 1.0-2.5 87551711) GLOBULIN (test code = 25819878) 2.2 g/dL (calc) 1.9-3.7 BILIRUBIN, INDIRECT (test code = 78817209) 0.5 mg/dL (calc) 0.2- 1.2 BILIRUBIN, DIRECT (test code = 74112424) 0.2 mg/dL < OR = 0.2 BILIRUBIN, TOTAL (test code = 41119515) 0.7 mg/dL 0.2-1.2 ALKALINE PHOSPHATASE (test code = 39833889) 99 U/L 33-1 30 AST (test code = 18962212) 25 U/L 10-35 [place] MULTIPLEX WITH REFLEX TO [id number] 15:23:00NEGATIVECOMPLEMENT, TOTAL (CH50)2019-01-30 15:23:0057COMPLEMENT COMP C3 + [id number] 15:23:00 Test Item Value Reference Range Comments COMPLEMENT COMPONENT C4C (test code = 13223835) 19 mg/dL 15-57 COMPLEMENT COMPONENT C3C (test code = 03247836) 74 mg/dL 83-193 COMPREHENSIVE METABOLIC PANEL\[id number] 12:12:00 Test Item Value Reference Range Comments ANION GAP (test code = ANION) 11 5-19 POTASSIUM (test code = K) 4.1 mmol/L 3.6-5.0 BILIRUBIN,TOTAL (test code = TBIL) 0.6 mg/dL 0.2-1.3 EGFR,NON (test code = GFRN) > 60 >60 CALCIUM (test code = CA) 10.5 mg/dL 8.4-10.2 TOTAL PROTEIN (test code = TP) 7.2 g/dL 6.3-8.2 BLOOD UREA NITROGEN (test code = BUN) 8 mg/dL 7-20 SODIUM (test code = NA) 137.9 mmol/L 137-145 ALANINE AMINOTRANSFERASE (test code = ALT) 20 U/L 9-52 ASPARTATE AMINO TRANSFERASE (test code = AST) 28 U/L 14 -36 ALKALINE PHOSPHATASE (test code = ALKP) 85 U/L 38-126 GLUCOSE (test code = GLU) 103 mg/dL 75-110 CARBON DIOXIDE (test code = CO2) 29 mmol/L 22-30 BILIRUBIN,DIRECT (test code = BC) 0.2 mg/dL 0.0-0.4 CHLORIDE (test code = CL-1) 98 mmol/L 98-107 CREATININE RESULT (test code = CREA) 0.66 mg/dL 0.52-1.25 ALBUMIN (test code = ALB) 4.5 g/dL 3.5-5.0 EGFR, (test code = GFRAA) > 60 >60 CBC WITH DIFF\[id number] 12:12:00 Test Item Value Reference Range Comments MONOCYTES % (AUTO) (test code = MO%) 7.4 % 3-13 BASOPHILS % (AUTO) (test code = BA%) 1.1 % 0-2 MEAN CORPUSCULAR HGB CONC (test code = MCHC) 34.6 g/dL 32. 0-36.0 PLATELET COUNT (test code = PLT) 301 10 3/uL 150-450 EOSINOPHILS % (AUTO) (test code = EO%) 1.5 % 0-6 SEGMENTED NEUTROPHILS % (AUTO) (test code = 65.9 % 42-7 8 SEG%) LYMPHOCYTES % (AUTO) (test code = LY%) 24.1 % 13-45 RED CELL DISTRIBUTION WIDTH (test code = RDW) 12.5 % 11 .5-14.0 MEAN CORPUSCULAR VOLUME (test code = MCV) 100 fl 80-97 HEMATOCRIT (test code = HCT) 42.7 % 36.0-47.0 ABSOLUTE LYMPHOCYTES (AUTO) (test code = LY#) 1.6 10 3/uL 0. 5-4.7 WHITE BLOOD COUNT (test code = WBC) 6.6 10 3/uL 4.0-10.5 MEAN CORPUSCULAR HEMOGLOBIN (test code = MCH) 34.6 pg 27 .0-33.4 HEMOGLOBIN (test code = HGB) 14.8 g/dL 12.0-15.5 ABSOLUTE MONOCYTES (AUTO) (test code = MO#) 0.5 10 3/uL 0.1- 1.4 ABSOLUTE NEUT (AUTO) (test code = NE#) 4.3 10 3/uL 1.7-8.2 ABSOLUTE EOSINOPHILS # (AUTO) (test code = EO#) 0.1 10 3/uL 0.0-0.6 RED BLOOD COUNT (test code = RBC) 4.28 10 6/uL 3.72-5.28 ABSOLUTE BASOPHILS # (AUTO) (test code = BA#) 0.1 10 3/uL 0. 0-0.2 THYROID STIMULATING HORMONE\[id number] 12:12:00 Test Item Value Reference Range Comments THYROID STIMULATING HORMONE (test code = TSHE) 1.73 uIU/mL 0 .47-4.68 Glucose, Finger Stick\S\[id number] 10:30:00 Test Item Value Reference Range Comments Glucose, Fingerstick (test code = FSGLUCOSE) 93 mg/dL 70- 99 Lipid [id number] 10:32:00 Test Item Value Reference Range Comments HDL Cholesterol (test code = 497208) 58 mg/dL >50 LDL Cholesterol (Calc) (test code = 526694) 98 mg/dL <100 Cholesterol (test code = 279825) 173 mg/dL <200 Triglycerides (test code = 065431) 85 mg/dL <150 VLDL Cholesterol (Calc) (test code = 931778) 17 mg/dL <30 Total Chol/HDL Ratio (test code = 725089) 3.0 Ratio <5.0 [id number] 10:32:00 Test Item Value Reference Range Comments TSH (test code = 374302) 1.33 mIU/L CBC NO Diff (Complete Blood Count)2017-04-21 10:32:00 Test Item Value Reference Range Comments Hematocrit (test code = 038565) 45.8 % 35.0-45.0 Hemoglobin (test code = 443861) 15.5 g/dL 11.7-15.5 MCHC (test code = 737163) 33.8 g/dL 32.0-36.0 RDW (test code = 583816) 13.5 % 11.0-15.0 RBC (test code = 203764) 4.91 MIL/uL 3.80-5.10 MCV (test code = 379181) 93.3 fL 80.0-100.0 MPV (test code = 501513) 9.4 fL 7.5-12.5 Platelet Count (test code = 116659) 330 K/uL 140-400 WBC (test code = 125318) 8.9 K/uL 3.8-10.8 MCH (test code = 502076) 31.6 pg 27.0-33.0 CMP with Estimated [id number] 10:32:00 Test Item Value Reference Range Comments CO2 (test code = 513669) 24 mmol/L 20-31 Albumin (test code = 583226) 4.3 g/dL 3.6-5.1 BUN (test code = 176539) 8 mg/dL 7-25 Est GFR, (test code = 165090) >89 mL/min > =60 AST/SGOT (test code = 438585) 15 U/L 10-35 Bilirubin, Total (test code = 666053) 0.7 mg/dL 0.2-1.2 Chloride (test code = 293909) 101 mmol/L 98-110 Total Protein (test code = 180136) 7.3 g/dL 6.1-8.1 Sodium (test code = 241362) 141 mmol/L 135-146 Creatinine (test code = 485146) 0.76 mg/dL 0.50-0.99 Alkaline Phosphatase (test code = 781456) 112 U/L 33-130 Calcium (test code = 863226) 9.9 mg/dL 8.6-10.4 ALT/SGPT (test code = 215608) 9 U/L 6-29 Est GFR, NonAfrican Malian (test code = 633958) 86 mL/min >=60 Glucose (test code = 695728) 88 mg/dL 65-99 Potassium (test code = 615472) 4.8 mmol/L 3.5-5.3 SARS-COV-2, BENITO Test Item Value Reference Range Comments SARS-COV-2, BENITO LDTNOT - Not NOT DETECTED NOT DETECTEDTEST ING WAS PERFORMED (test code = Detected USING THE YONY( R) SARS-COV-2 33141-0) TEST.THIS NUCLEI C ACID AMPLIFICATION TEST WAS DEVELOP ED AND ITS PERFORMANCECHARA CTERISTICS DETERMINED BY [facility]. NUCLEIC ACIDAMPL IFICATION TESTS INCLUDE PCR AND TMA. THIS TEST HAS NOT BEEN FDACLEA RED OR APPROVED. THIS TEST HAS BE EN AUTHORIZED BY FDA UNDER ANEMERGENC Y USE AUTHORIZATION (EUA). THIS TEST IS ONLY AUTHORIZED FORTHE DURATION OF TIME THE DECLARATION THAT CIRCUMSTANCES EXISTJUSTIFYING THE AUTHORIZATION OF THE EMERGENCY US E OF IN VITRODIAGNOSTIC TESTS FOR DETECTION OF SARS-COV-2 MIGUEL AND/OR DIAGNOSISOF COVI D-19 INFECTION UNDER SECTION 564(B)(1 ) OF THE ACT, 21 U.S.C.360BBB-3(B ) (1), UNLESS THE AUTHORIZATION IS TERMINATED OR REVOKEDSOONER.WH EN DIAGNOSTIC TESTING IS NEGAT SANJIV, THE POSSIBILITY OF A FALSENEGATI VE RESULT SHOULD BE CONSIDERED IN TH E CONTEXT OF A PATIENT'SRECENT EXPOSURES AND THE PRESENCE OF CLIN ICAL SIGNS AND SYMPTOMSCONSISTE NT WITH COVID-19. AN INDIVIDUAL WITHO UT SYMPTOMS OF COVID-19AND WHO IS NOT SHEDDING SARS-COV-2 VIRUS WOULD EXPECT TO HAVE ANEGATIVE ( NOT DETECTED) RESULT IN THIS ASSAY. Assessments Condition Name Status Diagnosis Date Treating Clinici an Current every day smoker Active Atypical rash Active Encounter for immunization Active ADD (attention deficit disorder) Active Easy bruising Active Nicotine addiction Active Osteoarthritis Active Family history of dementia Active GERD without esophagitis Active Consumes alcohol occasionally Active Anxiety and depression Active Osteopenia of multiple sites Active Generalized joint pain Active Other fatigue Active Somnolence Active Disorder of the skin and subcutaneous Active tissue, unspecified Chronic obstructive pulmonary disease, Active unspecified Other injury of unspecified body Active region, initial encounter Chronic fatigue, unspecified Active Disorder of the skin and subcutaneous Active tissue, unspecified Encounter for screening for malignant Active neoplasm of colon Pain in unspecified joint Active Other chest pain Active Fibromyalgia Active Body mass index (BMI) 19.9 or less, Active adult Chest pain, unspecified Active Pain in unspecified joint Active Chronic fatigue, unspecified Active Body mass index (BMI) 19.9 or less, Active adult Chronic obstructive pulmonary disease, Active unspecified Chronic fatigue, unspecified Active Pain in unspecified joint Active Oth symptoms and signs involving the Active musculoskeletal system Chronic fatigue, unspecified Active Myalgia, unspecified site Active Chronic obstructive pulmonary disease, Active unspecified Hypo-osmolality and hyponatremia Active Pain in elbow Active 2019-04-23 13:09:33 Lateral epicondylitis of right humerus Active 9 14:10:28 Essential (primary) hypertension Active Chronic fatigue, unspecified Active Encounter for screening for other viral Active diseases Body mass index (BMI) 19.9 or less, Active adult Unspecified lesions of oral mucosa Active Lateral epicondylitis, right elbow Active Essential (primary) hypertension Active Body mass index (BMI) 19.9 or less, Active adult Pruritus, unspecified Active Rash and other nonspecific skin Active eruption Chronic rhinitis Active Other injury of unspecified body Active region, subs Chronic obstructive pulmonary disease w Active (acute) exacerbation Acute sinusitis, unspecified Active Impacted cerumen, left ear Active Body mass index (BMI) 19 or less, adult Active Other skin changes Active Chronic obstructive pulmonary disease, Active unspecified Essential (primary) hypertension Active Body mass index (BMI) 19 or less, adult Active Essential (primary) hypertension Active Acute sinusitis, unspecified Active Chronic obstructive pulmonary disease, Active unspecified Body mass index (BMI) 20.0-20.9, adult Active Essential (primary) hypertension Active Other visual disturbances Active Peripheral vascular disease, Active unspecified Tobacco use Active Encounters Start End Encounter Admission Attending Care Care Encounter Date/Time Date/Time Type Type Clinicians Facility Department ID 2020-01-08 2020-01-08 Appointment [facility]ANP[facility]ERIOTW [id number] 06 13:30:00 13:30:00 ; Smooth Goncalves D.O. 2019-11-09 2019-11-[address] [facility] [id number] 09:45:00 09:45:00 [facility] [id number] and [id number] Multispecial [id number] ty Clini 2019-09-28 2019-09-28 [facility] [id number] 08:30:00 08:30:00 [facility] [id number] s [id number] and [id number] Multis[facility]ial ty Clinic, 2019-07-09 2019-07-09 [facility] [id number] 15:00:00 15:00:00 [facility] [id number] s [id number] and [id number] Multispecial ty Clinic, 2019-06-19 2019-06-19 [facility] 1 [id number] 15:15:00 15:15:00 [facility] [id number] s [id number] and [id number] Multispecial ty Clinic, 2019-05-28 2019-05-28 [facility] [id number] 10:15:00 10:15:00 [facility] [id number] s [id number] and [id number] Multispecial ty Clinic, 2019-05-18 2019-05-18 [facility] [id number] 09:30:00 09:30:00 [facility] [id number] s [id number] and [id number] Multispecial ty Clinic, 2019-04-23 2019-04-23 Enrico Smith [id number] 00:00:00 00:00:00 [place], Surgical Surgical [id number] DO: [address] [facility], [address], [place] [address], Ph. 2019-04-20 2019-04-20 [facility] 7 [id number] 10:00:00 10:00:00 [facility] [id number] s [id number] and [id number] Multispecial ty Clinic, 2019-03-22 2019-03-22 [facility] 4 [id number] 14:15:00 14:15:00 [facility] [id number] s [id number] and [id number] Multispecial ty Clinic, 2019-01-30 2019-01-30 Outpatient Santos Ruiz [facility] [id number] 14:00:00 14:00:00 Children???s [id number] and [id number] Multispecial [id number] ty Clini 2018-05-02 2018-05-02 [facility] 7 [id number] 13:00:00 13:00:00 Shmuel Juan [id number] s [id number] [facility] [id number] [facility] [place] 2017-11-10 2017-11-10 [facility] 3 [id number] 16:15:00 16:15:00 Shmuel Juan [id number] s [id number] and [id number] [facility] [place] 2017-07-11 2017-07-11 Outpatient Jorge L [facility] 5 [id number] 11:15:00 11:15:00 Shmuel Juan [id number] s [id number] and [id number] [facility] [place] 2017-04-21 2017-04-21 [facility] 4 [id number] 09:30:00 09:30:00 Shmuel Juan [id number] s [id number] [facility] [id number] [facility] [place] Family History Family Member Diagnosis Comments Start Date Stop Date Mother Family history of Healthy adult Mother Family history of dementia Sister Family history of Ischemic stroke with paralysis Immunizations Ordered Immunization Filled Immunization Date Status Commen ts Refusal Reason Name Name Prevnar 13 2020-01-08 Completed Intramuscular 00:00:00 Suspension Social History Smoking Status Start Date Stop Date Smokes tobacco daily (finding) Vital Signs Vital Name Observation Time Observation Value Comments BP Diastolic 2019-04-23 00:00:00 89 mm[Hg] Height 2019-04-23 00:00:00 64 [in_i] BMI (Body Mass Index) 2019-04-23 00:00:00 18.2 kg/m2 BP Systolic 2019-04-23 00:00:00 138 mm[Hg] Body Weight 2019-04-23 00:00:00 106 [lb_av] Systolic blood pressure 2020-01-08 13:55:00 128 mm[Hg] Diastolic blood pressure 2020-01-08 13:55:00 72 mm[Hg] Body height 2020-01-08 13:55:00 64 [in_us] Body mass index (BMI) [Ratio] 2020-01-08 13:55:00 19.14 kg/m2 Weight 2020-01-08 13:55:00 111.5 [lb_av] Body temperature 2020-01-08 13:55:00 98.4 [degF] Heart Rate 2020-01-08 13:55:00 87 /min Respiratory rate 2020-01-08 13:55:00 17 /min O2 SAT 2020-01-08 13:55:00 99 % Source: [facility] Discharge Instructions NameDatesDetailsInstructions not documented1. Pain in elbow XR, elbow Mobic 7.5 mg tablet 2. Lateral epicondylitis of right humerus Discussion Note: None recorded. Patient educational handouts: No information available.
== END 2020-03-26 09:10 | disposition home or self-care (01) ==
LOC: END 07:37
PROVIDERS: ATTEND Internal Medicine Gastroenterology
DX: K29.50 Unspecified chronic gastritis without bleeding (principal); K64.8 Other hemorrhoids; K22.2 Esophageal obstruction; K21.00 Gastro-esophageal reflux disease with esophagitis, without bleeding; K52.9 Noninfective gastroenteritis and colitis, unspecified; J44.9 Chronic obstructive pulmonary disease, unspecified; I10 Essential (primary) hypertension; Z03.818 Encounter for observation for suspected exposure to other biological agents ruled out; Z79.899 Other long term (current) drug therapy; F17.210 Nicotine dependence, cigarettes, uncomplicated
CPT/HCPCS: 43239; 45380; 87635; 88342 ×2; 88305 ×2; J2704; C9803; 813